=== PATIENT | female | born 1940 | race Caucasian/White ===

== ENCOUNTER 2017-09-08 06:18 | Day surgery (SDC) | payer MEDICARE ==
[~2017-09-08] VITALS: Ht 165.1 cm; Wt 54.4 kg
[~2017-09-08 06:18] MED LIST: ALPH0.15 EACH EYE; AMLO5TAB22 PO; IPRA17I INH; LEVO100T4 PO; METO25 PO; SYMB80AE INH; WARF2.5T40 PO; XALA0.00 EACH EYE; ZOCO40TA PO
[2017-09-08] MEDS ORDERED: IOHEXOL 350 MG/ML 50 ML BTL (for Cath Lab) OTHER ONE (06:19)
[2017-09-08] MEDS ORDERED: NS 1000P @30 MLS/HR (KVO) IV SCH (06:45)
[2017-09-08] MEDS ORDERED: MUPI2OIN TOPICAL (06:59)
[2017-09-08] MEDS ORDERED: NACCAP PO (06:59)
[2017-09-08] MEDS ORDERED: LEVO100T5 PO (06:59)
[2017-09-08] MEDS ORDERED: METO25TA3 PO (06:59)
[2017-09-08] MEDS ORDERED: WARF-23 PO (06:59)
[2017-09-08] MEDS ORDERED: IPRA17I INH (06:59)
[2017-09-08] MEDS ORDERED: SYMB160A INH (06:59)
[2017-09-08] MEDS ORDERED: AMLO5TAB2 PO (06:59)
[2017-09-08] MEDS ORDERED: PRED20 PO (06:59)
[2017-09-08] MEDS ORDERED: LEVO750T3 PO (06:59)
[2017-09-08] MEDS ORDERED: LATA0.002 EACH EYE (06:59)
[2017-09-08] MEDS ORDERED: SIMV20TA PO (06:59)
[2017-09-08 07:01] VITALS: BP 141/71; PULSE 73; RESP 18; TEMP 97.7; O2SAT 98
[2017-09-08 07:19] LABS: INTERNATIONAL NORMALIZED RATIO 1.1 RATIO; PROTHROMBIN TIME - PATIENT 10.8 SEC (9.8-11.6)
[2017-09-08] MEDS ORDERED: HEPARIN-NS/PF FLUSH BAG 2,000 ML IV FLUSH ONE (07:31)
[2017-09-08] MEDS ORDERED: NITROGLYCERIN INJ 5 ML ONE (07:34)
[2017-09-08] MEDS ORDERED: HEPARIN SODIUM - IV 10,000 UNITS/10 ML VIAL ONE (07:34)
[2017-09-08] MEDS ORDERED: MIDAZOLAM HCL 2 MG/2 ML VIAL ONE (08:20)
[2017-09-08] MEDS ORDERED: diphenhydrAMINE HCL 50 MG/ML VIAL ONE ×2 (08:32→10:57)
[2017-09-08] MEDS ORDERED: ONDANSETRON HCL 4 MG/2 ML VIAL ONE (08:32)
[2017-09-08] MEDS ORDERED: BACITRACIN OINT 0.9 GM PKT TOP ONE (09:30)
[2017-09-08] MEDS ORDERED: LIDOCAINE HCL 1% 50 ML VIAL INFIL PRN (09:30)
[2017-09-08] MEDS ORDERED: ATROPINE SULFATE 1 MG/ML VIAL IV PUSH PRN (09:30)
[2017-09-08] MEDS ORDERED: LORazepam 2 MG/ML VIAL IV PUSH PRN (09:30)
[2017-09-08] MEDS ORDERED: METOCLOPRAMIDE HCL 10 MG/2 ML VIAL IV PUSH PRN (09:30)
[2017-09-08] MEDS ORDERED: ONDANSETRON HCL 4 MG/2 ML VIAL IV PUSH PRN (09:30)
[2017-09-08] MEDS ORDERED: SODIUM CHLOR 0.9% 250 ML INJ 250 ML IV PRN (09:30)
--- NOTE | 2017-09-08 09:52 | CATHPROC ---
[employer] HIS Report Study Information Study Number Admission Scheduled Start Study Start [id number] Sep 08 2017 6:18AM 09/08/2017 Sep 08 2017 8:18AM [facility] Cardiac Catheterization Admit Source Facility Department Other [facility] - Auto Suspension And Steering Mechanic Physician and Clinical Staff Initial Sean Oropeza Wind Energy Technician Karen Snell,DA Other cathlab, cathlab Recorder Poppy Oseguera,PORCELAIN ENAMEL SPRAYER TECH2 Scrub Mari Alvarez ,RT(R) Procedures Performed Procedure Location (Site) Vessel Name Coronary Angiograms LCA Left Coronary Coronary Angiograms RCA Right Coronary Coronary Angiograms LÓPEZ-LAD Left Coronary Coronary Angiograms Gft, CIRC Mid CIRC Wire insertion Fem Art (right) Femoral Art Equipment Time Furniture Assembler Description Size Mfg Part Number Used/Scraped ARROW Berggi CATHETER, FR.7 BALLOON [id number] 09:02 FR 7 Used INC. WEDGE PRESSURE *[id number] TRANSDUCER, TRVisualShare [id number] 09:02 VICTOR CREWS * Used W/STOCKCOCK *[id number] *[id number] [id number] *[id number] 09:02 MEDLINE INDUSTRIES PACK, CCL CUSTOM * Used *[id number] 09:02 GEOLID PACER PEN, SKIN DUAL W/ RULER * Used *[id number] 09:11 MEDTRONIC JL 4.0 DXTERITY CATHETER FR 5 Used *[id number] 09:11 MEDTRONIC JR 4.0 DXTERITY CATHETER FR 5 Used *[id number] 09:02 TuneWiki MEDICAL WIRE, 3MMJ .035 180CM 180CM Used *[id number] 09:15 [employer] MEDICAL PACER SAFE SHEATH, FR7, 13CM FR 7 [id number] Used [id number] 09:02 NAMIC MANIFOLD, 2 PORT * Used *[id number] 09:02 NAMIC MANIFOLD, 4 PORT * Used *[id number] 09:02 NYCOMED OMNIPAQUE, 350 MG, 150ML 150ML [id number] Used [id number] 09:02 MORENO MEDICAL BLANKET,WARM AIR CCL * Used *[id number] 09:02 TERUMO MEDICAL SHEATH, FR5 TERUMO (10CM) FR 5 Used *[id number] 09:02 TERUMO MEDICAL SHEATH, FR7 TERUMO (10CM) FR 7 Used *[id number] Equipment Model, Serial, Lot Number and Expiration Data Description Model Number Serial Number Lot Number Expiration Date JL 4.0 DXTERITY CATHETER [id number] 03-14-2020 JR 4.0 DXTERITY CATHETER [id number] 04-03-2020 History: Current Medications Medication Dosage/Unit Route Frequency Last Date/Time Taken Synthroid PREDNISONE Coumadin History: Allergies Allergy Reaction iohexol NAUSEA AND VOMITING potassium iodide Rash sodium iodide Rash diatrizoate meglumine NAUSEA AND VOMITING iodine Rash povidone-iodine Rash gadoteridol NAUSEA AND VOMITING gadodiamide NAUSEA AND VOMITING meperidine CLAUSTROPHOBIA penicillin G Rash iodixanol NAUSEA AND VOMITING gadobenic acid NAUSEA AND VOMITING SHELLFISH Rash History: Risk Factors Family History of Hypertension Dyslipidemia Previous UT Previous Heart Failure Premature CAD Yes Yes No Yes No Prior Valve Prior PCI Prior CABG Prior CABGDate Surgery No No Yes 06/26/1991 Cerebrovascular Peripheral Artery Chronic Lung On Dialysis Diabetes Disease Disease Disease No No No Yes No History: CV Disease Selection Items Known CAD History: Stress Tests Stress or Imaging Studies Performed No History: Arrhythmias Selection Items Atrial fibrillation History: Other Disease Selection Items CAD Gerd HTN History: UT/CV Data Previous CABG Date 06/26/1991 History: Other Current Smoker No Labs Hgb (g/dl) Hct (%) RBC (MIL/MM3) WBC (l/cumm) Platelets (thousands) 11.60-17.00 35.00-51.00 4.00-5.90 4.00-11.00 150.00-450.00 12.6 38 4.4 6.4 372 Glucose (mg/dl) BUN (mg/dl) Creatinine (mg/dl) BUN:Creatinine (1:x) 74.00-106.00 7.00-18.00 0.50-1.30 10.00-20.00 160 16 0.7 22.9 Na (meq/l) K (meq/l) Cl (meq/l) CO2 (mmol/L) Ca (mg/dl) 136.00-145.00 3.50-5.10 98.00-107.00 21.00-32.00 8.50-10.10 141 3.9 102 18 8.6 PT (sec) INR (PTT:PT) 9.80-11.60 0.90-1.10 10.8 1.1 Medication Medication Total Dose (Bolus/Oral) Medication Total Dosage/Unit 1% XYLOCAINE 20 mL BENADRYL 50 mg FENTANYL 25 mcg VERSED 2 mg ZOFRAN 4 mg Medications (Bolus/Oral) Medication Time Given Dosage/Unit Administered By Reason BENADRYL 09/08/2017 8:37:35 AM 50 mg Mrache, Karen 50 mg BENADRYL given in lab by Karen Snell RN in Right Hand via Peripheral IV. Ordered by Sean Rosen. VERSED 09/08/2017 8:57:33 AM 1 mg Mrache, Karen 1 mg VERSED given in lab by Karen Snell RN in Right Hand via Peripheral IV. Ordered by Kike Rosen. FENTANYL 09/08/2017 8:58:20 AM 25 mcg Mrache, Karen 25 mcg FENTANYL given in lab by Karen Snell RN in Right Hand via Peripheral IV. Ordered by Sean Spivey. ZOFRAN 09/08/2017 8:59:02 AM 4 mg Mrache, Karen 4 mg ZOFRAN given in lab by Karen Snell RN in Right Hand via Central IV. Ordered by William Rosen. 1% XYLOCAINE 09/08/2017 9:00:19 AM 20 mL Sean Rosen 20 mL 1% XYLOCAINE given in lab by Sean Rosen in Right Groin via Subcutaneous. Ordered by Sean Rosen. VERSED 09/08/2017 9:05:20 AM 1 mg Mrache, Karen 1 mg VERSED given in lab by Karen Snell RN in Right Hand via Peripheral IV. Ordered by Kike Rosen. Medication (Drip) Medication Time Given Dosage/Unit Concentration/Unit Diluent (ml) Solution IV Solutions 09/08/2017 8:22:20 AM 0 mL (IV) 500 NaCl .9 IV Solutions given in lab by Karen Snell RN in Right Hand via Peripheral IV. Pump/Drip Flow = 2 0 ml/hr using NaCl .9. Ordered by Sean Rosen. Initial Case Assessment Cardiovascular HR NIBP 86 136/74 Edema Present Skin color Skin None Normal Warm Dry Circulatory - Right Pulses Dorsalis Pedis Femoral 2 3 Scale (0,1,2,3,4,d) Circulatory - Left Pulses Dorsalis Pedis Femoral 2 3 Scale (0,1,2,3,4,d) Neurological State Oriented to time-place- Alert Moves all extremities person Respiration - General Respiration Rate SpO2 (%) (B/min) 17 98 Chronological Log Time Study Chronological Log 8:17:58 Patient arrived via Bed. 8:17:59 Patient Name, D.O.B, / Armband Verified By R.N. 8:18:00 Consent signed by the physician and the patient and verified by the Auto Suspension And Steering Mechanic staff. 8:22:12 Patient has been NPO for More than 6Hrs. 8:22:13 NO Skin Breakdown- 8:22:14 Patient Warmer Placed on the Table. 8:22:16 Megan Prominences Protected 8:22:19 A # 20 IV was noted in the Hand (right). Grade = 0 IV Solutions given in lab by Karen Snell, RN in Right Hand via Peripheral IV. Pump/Drip Flow = 20 ml/hr using 8:22:20 NaCl .9. Ordered by Sean Rosen. 8:22:21 History and physical on the chart or being dictated. Vitals capture started with the following parameters, Patient=Adult, Interval=5 min, Initial Jwlmdgaz=912 mmHg, 8:22:30 Deflation Rate=5 mmHg, Cuff placed on Right Arm 8:23:07 HR=86 bpm, FAAI=870/74 mmhg, SpO2=98.0 %, Resp=17 B/min, Pain=0, Danna=10, Hughes=2 Assessment: Initial Case, HR=86 BPM, ELBG=701/74 mmhg, Edema=None, Color=Normal, Skin = Warm, Dr y Right Pulses: Samuel Ped=2, Femoral=3 8:24:53 Left Pulses: Samuel Ped=2, Femoral=3 Neurological: State=Alert, Ox3, EVANGELISTA Respiration: Resp=17 B/min, SpO2=98 % 8:25:41 Reference ECG taken 8:28:04 HR=73 bpm, KNLQ=109/74 mmhg, SpO2=97.0 %, Resp=18 B/min, Pain=0, Danna=10, Hughes=2 8:30:41 Bilateral groins prepped with 2% chlorhexidine, and draped after a 3 minute waiting time. 8:33:09 HR=74 bpm, THKV=945/70 mmhg, SpO2=89.0 %, Resp=17 B/min, Pain=0, Danna=10, Hughes=2 8:33:28 Pressure channel 1 zeroed. 8:37:35 50 mg BENADRYL given in lab by Karen Snell, DA in Right Hand via Peripheral IV. Ordered by Sean Rosen. 8:38:10 HR=75 bpm, LYLR=629/70 mmhg, SpO2=98.0 %, Resp=19 B/min, Pain=0, Danna=10, Hughes=2 8:43:05 HR=75 bpm, VJUZ=015/79 mmhg, SpO2=99.0 %, Resp=16 B/min, Pain=0, Danna=10, Hughes=2 8:48:51 HR=80 bpm, DCEX=229/81 mmhg, SpO2=98.0 %, Resp=12 B/min, Pain=0, Danna=10, Hughes=2 8:53:11 HR=75 bpm, KMWS=388/72 mmhg, SpO2=98.0 %, Resp=17 B/min, Pain=0, Danna=10, Hughes=2 8:57:33 1 mg VERSED given in lab by Karen Snell, DA in Right Hand via Peripheral IV. Ordered by Sean Rosen. 8:58:10 HR=76 bpm, HBJV=474/74 mmhg, SpO2=98.0 %, Resp=19 B/min, Pain=0, Danna=10, Hughes=2 8:58:20 25 mcg FENTANYL given in lab by Karen Snell, DA in Right Hand via Peripheral IV. Ordere d by Sean Rosen. 8:59:02 4 mg ZOFRAN given in lab by Karen Snell, DA in Right Hand via Central IV. Ordered by Sean Wynne. Time Out. Correct patient, correct procedure, correct physician, power injector not loaded with contrast with surgical 8:59:34 team present. Time Out Concurred by MD and individual staff in procedure. 9:00:18 Case Start 9:00:19 20 mL 1% XYLOCAINE given in lab by Sean Rosen in Right Groin via Subcutaneous. Ordered b Sean Sosa. 9:02:56 Access site was Right Femoral Vein. 9:03:08 A SHEATH, FR7 TERUMO (10CM) FR 7 was advanced into the Fem Vein (right) using the Modified S savageer technique. 9:03:12 HR=72 bpm, IRUW=927/72 mmhg, SpO2=97.0 %, Resp=18 B/min, Pain=0, Danna=10, Hughes=2 9:04:35 Access site was Right Femoral Artery. 9:04:43 A SHEATH, FR5 TERUMO (10CM) FR 5 was advanced into the Fem Art (right) using the Modified Se davis technique. 9:05:20 1 mg VERSED given in lab by Karen Snell RN in Right Hand via Peripheral IV. Ordered by Sean Rosen. 9:05:33 A CATHETER, FR.7 BALLOON WEDGE PRESSURE FR 7 was inserted via Fem Vein (right) Recorded Pressure: RA, HR=71, Condition=Condition 1 9:07:11 (Right Atrium) RA 5/5/2 Recorded Pressure: RV, HR=68, Condition=Condition 1 9:07:28 (Right Ventricle) RV 36/0/4 Recorded Pressure: MPA, HR=72, Condition=Condition 1 9:07:57 (Main Pulmonary Artery) MPA 32/20 9:08:11 HR=71 bpm, KZJJ=499/65 mmhg, SpO2=98.0 %, Resp=17 B/min, Pain=0, Danna=10, Hughes=2 Recorded Pressure: PCW, HR=72, Condition=Condition 1 9:08:26 (Pulmonary Capillary Wedge) PCW 1316/11 9:09:10 [place] Brenda Catheter Removed A JL 4.0 DXTERITY CATHETER FR 5 was advanced over a wire. OMNIPAQUE, 350 MG, 150ML 150ML was use d for :09:11 injections. 9:10:59 Saturation: Site=Ao (Aorta) , O2=96.2 %, Hgb=12.6 gm/dl, Condition=Condition 1. Used in calc ulation. 9:11:15 Saturation: Site=PA (Pulmonary Artery) , O2=78.8 %, Hgb=12.6 gm/dl, Condition=Condition 1. U sed in calculation. Recorded Pressure: Ao, HR=71, Condition=Condition 1 9:12:12 (Aorta) Ao 135/59/88 9:12:31 The LCA was injected and visualized at various angles. OMNIPAQUE, 350 MG, 150ML 150ML use d. 9:13:05 HR=68 bpm, LTIC=214/66 mmhg, SpO2=98.0 %, Resp=18 B/min, Pain=0, Danna=10, Hughes=2 After removing the current catheter a JR 4.0 DXTERITY CATHETER FR 5 was advanced over a WIRE, 3MMJ .035 180CM 9:15:34 180CM. 9:17:36 The RCA was injected and visualized at various angles. OMNIPAQUE, 350 MG, 150ML 150ML use d. 9:18:09 HR=71 bpm, XWAT=312/70 mmhg, SpO2=99.0 %, Resp=17 B/min, Pain=0, Danna=10, Hughes=2 9:18:18 The Gft, CIRC Mid was injected and visualized at various angles. OMNIPAQUE, 350 MG, 150ML 150ML used. 9:20:06 The LÓPEZ-LAD was injected and visualized at various angles. OMNIPAQUE, 350 MG, 150ML 150ML used. 9:20:43 A WIRE, 3MMJ .035 180CM 180CM was inserted via Fem Art (right). 9:20:51 Catheter was removed 9:20:55 Case End 9:21:15 Catheter(s) removed without difficulty 9:23:08 HR=72 bpm, VKGG=571/76 mmhg, SpO2=99.0 %, Resp=14 B/min, Pain=0, Danna=10, Hughes=2 9:25:08 Arterial Sheath removed; pressure applied to access site. 9:28:13 HR=69 bpm, OIRV=430/67 mmhg, DcG7=345.0 %, Resp=16 B/min, Pain=0, Danna=10, Hughes=2 9:33:14 HR=70 bpm, OLTA=860/69 mmhg, SpO2=99.0 %, Resp=17 B/min, Pain=0, Danna=10, Hughes=2 9:35:27 Venous Sheath removed; pressure applied to access site. 9:36:42 No case complications noted. 9:36:43 Cine recording checked. 9:36:48 Holding Area notified. 9:36:53 Bedside Report will be given. 9:36:59 A Left and Right Heart Cath was performed. 9:38:15 HR=67 bpm, RICW=948/60 mmhg, SpO2=99.0 %, Resp=17 B/min 9:43:10 HR=69 bpm, AAZW=191/76 mmhg, SpO2=98.0 %, Resp=19 B/min 9:48:25 Vitals capture stopped. 9:51:20 [facility] - Contrast Media Used In Study Contrast Total Opened (mL) Total Used (mL) Total Wasted (mL) Omnipaque 50 50 0 End Study - Maximum Contrast Load Max Contrast Load (mL) 388.6 End Study - Radiation Exposure Fluoro Time (minutes) 2.9 End Study - Sheaths Sheaths Pulled By Sheath Hold Time (min) Mari Alvarez 20 End Study - Patient Disposition Complications Transferred To Telemetry Bed
--- NOTE | 2017-09-08 10:05 | MA ---
cc: Sean Rosen MD 09/08/2017 DATE OF PROCEDURE: 09/08/2017 INDICATIONS: Severe aortic stenosis. PROCEDURES PERFORMED: 1. Fluoroscopy with interpretation. 2. Coronary angiography. 3. Right catheterization. 4. Coronary bypass graft angiography. METHOD: Risks, benefits and alternatives discussed with the patient. The patient understood and consented to the procedure. The patient was brought into catheterization lab, placed on the catheterization table. The right groin was prepped and draped in sterile fashion. The right groin was anesthetized with 2% lidocaine. Right common femoral artery was cannulated and a 5-Iraqi 11 cm sheath was placed in the artery. A size 7-Iraqi long Slender sheath placed in the vein. RIGHT HEART CATHETERIZATION: A 7-Iraqi [place]renda pulmonary arterial catheter was advanced through the right femoral venous sheath up to the level of the right atrium under fluoroscopic guidance. Hemodynamics were performed in all chambers while advancing to the pulmonary capillary wedge position. Hemodynamics were as follows: 1. Right atrial pressure measured at 5 mmHg. 2. Right ventricular pressure was 36/4 mmHg. 3. Pulmonary arterial pressure measured 32/10 mmHg. 4. Pulmonary capillary wedge pressure measured at 11 mmHg. Cardiac output 6.4 liters per minute. Cardiac index 3.2 liters/minute/m2. CORONARY ANGIOGRAPHY: 1. Left main has 30-40% proximal stenosis. 2. Left anterior descending coronary artery has 30% proximal with mild luminal irregularities in the mid to distal segment. 3. Left circumflex is a dominant vessel giving rise to a left-sided posterior descending branch. Left circumflex gives rise to the first obtuse marginal branch with a vein graft and competitive flow visualized. The remainder of the circumflex has mild irregularities. There is a 30% stenosis proximally in the circumflex. 4. Right coronary artery is nondominant with a 30% proximal stenosis. CORONARY BYPASS GRAFT ANGIOGRAPHY: 1. Left internal mammary to left anterior descending is atretic. 2. Saphenous vein graft to the first obtuse marginal branch is widely patent with competitive flow. CONCLUSIONS: 1. Severe aortic stenosis 2. Normal left and right-sided filling pressures with normal pulmonary pressures and normal cardiac output and index. 3. Mild to moderate coronary artery disease with left dominant system. 4. One of two coronary bypass grafts are patent. The left internal mammary to the left anterior descending is atretic. PLAN: The patient has severe aortic stenosis. We will obtain surgical consultation and consideration for transcatheter aortic valve replacement versus surgical aortic valve replacement. The patient has an atretic left internal mammary likely due to competitive flow secondary to nonobstructive left main and left anterior descending coronary artery disease. No need for intervention. MD TG Heck/SB , 09:34 AM , 10:03 AM
--- NOTE | 2017-09-08 10:41 | PD.FRAIL ---
Date: Sep 08, 2017 Height: 165.1 cm Weight: 54.4 kg BMI: 20.0 Assessment Performed: Outpatient Albumin 09/08/17 08:06: Albumin 3.3 Pass/Fail: Fail [place] Activities Daily Living [place] ADL Score: Bathing(bathes self/help in single area): [place] (1), Dressing(gets/puts clothes on self): [place] (1), Toileting(goes without help): [place] ( 1), [facility] [place] (1), Continence( complete self-control): [place] (1), Feeding(self, prep by another allowed) : [place] (1), Total: 6 Pass/Fail: Pass Bit Tapper Strength Grasp 1: 18 Grasp 2: 16 Grasp 3: 16 Average: 17 Pass/Fail: Pass 15-Foot Walk 15-Foot Walk (seconds): 8 Pass/Fail: Fail Total Frailty Total Frailty (out of 4): 2 Frailty Index Score Reference Bit Tapper Strength: BMI: <=23 Cutoff for back tacker strength(Kg): <=17 BMI: 23.1-26 Cutoff for back tacker strength(Kg): <=17.3 BMI: 26.1-29 Cutoff for back tacker strength(Kg): <=18 BMI: >29 Cutoff for back tacker strength(Kg): <=21 15-Foot Walk: Height: <=159 cm 15-Foot Walk Cutoff Time: >=7 seconds Height: >159 cm 15-Foot Walk Cutoff Time: >=6 seconds Charanjit Torre RN Sep 08, 2017 10:41
--- NOTE | 2017-09-08 11:10 | EKG ---
Date Performed: 09/08/2017 Time Performed: 07:07:30 PTAGE: 76 years EKG: Sinus rhythm Left axis deviation RBBB with left anterior fascicular block Abnormal ECG NO PREVIOUS TRACING DOCTOR: Konstantin Pérez Interpretating Date/Time 09/08/2017 11:07:35
[2017-09-08] MEDS ORDERED: diphenhydrAMINE HCL 50 MG/ML VIAL IV PUSH ONE (11:15)
--- NOTE | 2017-09-08 12:05 | RADRPT ---
EXAM DATE/TIME: 09/08/2017 10:53 [facility] COMPARISON: No previous studies available for comparison. INDICATIONS : Tavr evaluation MEDICAL HISTORY : None. SURGICAL HISTORY : CABG. ENCOUNTER: Initial ACUITY: 1 day PAIN SCORE: 0/10 LOCATION: Bilateral chest FINDINGS: There is some increased basilar dependent density was meds and atelectasis and scarring. Postop CABG by history. No effusion or pneumothorax. Calcified hilar lymph nodes and scattered granulomata in the lungs. CONCLUSION: 1. Basilar dependent density in the lungs most characteristic of atelectasis or scarring. Remote gran ulomatous disease. Anmol Paul MD on September 08, 2017 at 12:02 Board Certified Radiologist. This report was verified electronically.
[2017-09-08] MEDS ORDERED: IOHEXOL 350 MG/ML 10 ML VIAL (for RAD DIAG) IVCONTRAST ONE (13:36)
[2017-09-08 14:00] LABS: BILIRUBIN, URINE NEG (NEG); BLOOD, URINE TRACE (NEG); GLUCOSE,URINE NEG (NEG); KETONE, URINE 10 mg/dL (NEG); MUCUS URINE FEW /lpf (OCC); NITRITE,URINE NEG (NEG); PH, URINE 5.5 (5.0-8.5); SQUAMOUS EPITHELIAL CELL URINE <1 /hpf (0-5); URINE COLOR YELLOW (YELLW/STRAW); URINE LEUKOCYTE ESTERASE NEG (NEG)
--- NOTE | 2017-09-08 17:46 | PD.CAR.PN ---
CVT Progress Note Subjective/Hospital Course: pt seen and evaluated for Dr Malin full consult to follow sts data discussed with pt RISK SCORES About the STS Risk Calculator Procedure: AV Replacement Risk of Mortality: 4.005% Morbidity or Mortality: 21.165% Long Length of Stay: 10.046% Short Length of Stay: 23.966% Permanent Stroke: 2.031% Prolonged Ventilation: 16.783% DSW Infection: 0.228% Renal Failure: 3.967% Reoperation: 8.268% Objective: Vital Signs Date Time Temp Pulse Resp B/P (MAP) Pulse Ox O2 Delivery O2 Flow Rate FiO2 09/08/17 09:59 99 Room Air 09/08/17 07:01 97.7 73 18 141/71 (94) 98 Labs: Laboratory Tests Test 09/08/17 07:00 09/08/17 08:06 09/08/17 13:00 09/08/17 13:20 Prothrombin Time 10.8 SEC (9.8-11.6) Prothromb Time International Ratio 1.1 RATIO Albumin 3.3 GM/DL (3.4-5.0) Urine Color YELLOW (YELLW/STRAW) Urine Turbidity CLEAR (CLEAR) Urine pH 5.5 (5.0-8.5) Urine Specific [place] GREATER THAN 1.050 Urine Protein TRACE mg/dL (NEG-TRACE) Urine Glucose (UA) NEG mg/dL (NEG) Urine Ketones 10 mg/dL (NEG) Urine Occult Blood TRACE (NEG) Urine Nitrite NEG (NEG) Urine Bilirubin NEG (NEG) Urine Urobilinogen LESS THAN 2.0 MG/DL (LESS Urine Leukocyte Esterase NEG (NEG) Urine RBC LESS THAN 1 /hpf (0-3) Urine WBC 1 /hpf (0-5) Urine Squamous Epithelial Cells <1 /hpf (0-5) Urine Mucus FEW /lpf (OCC) Microscopic Urinalysis Comment CULT NOT INDICATED Nasal Screen MRSA (PCR) MRSA NOT DETECTED (NOT Laura Crow Sep 08, 2017 17:46
--- NOTE | 2017-09-08 18:10 | RADRPT ---
EXAM DATE/TIME: 09/08/2017 13:28 [facility] COMPARISON: No previous studies available for comparison. INDICATIONS : Evaluate for trans aortic valve replacement. IV CONTRAST: 85 cc Omnipaque 350 (iohexol) IV RADIATION DOSE: 30.31 CTDIvol (mGy) MEDICAL HISTORY : Cardiovascular disease. Hypertension. Congestive heart failure. SURGICAL HISTORY : Hysterectomy. CABG ENCOUNTER: Initial ACUITY: 1 day PAIN SCALE: 0/10 LOCATION: cranial Patient was premedicated for underlying contrast media allergy. TECHNIQUE: Volumetric scanning was performed using a multi-row detector CT scanner. The data was post processed with a variety of visualization algorithms including full volume maximum intensity projection, multi -planar sliding thin slab reformation, curved planar reformation, and surface rendering techniques. Using automated exposure control and adjustment of the mA and/or kV according to patient size, radiat ion dose was kept as low as reasonably achievable to obtain optimal diagnostic quality images. DIC OM format image data is available electronically for review and comparison. FINDINGS: CARDIAC: The coronary system is left dominant. There is diffuse atherosclerotic plaquing involving the LAD. Th ere is a bypass graft which originates from the tubular portion of the ascending aorta and anastomosi s with the circumflex. The graft is patent. The right coronary is diminutive in size. The coronaries were not assessed in detail. AORTIC ROOT/VALVE: There is a tricuspid aortic valve. There is diffuse atherosclerotic calcification of the valve leafle ts. There is mild atherosclerotic calcification of the aorta again US. The aortic root just above the level the coronaries measures 3.4 cm in maximum dimension it should be noted, the patient's bypass g raft arises from the tubular portion of the ascending aorta just below the level of the arch. The tub ular portion of the ascending aorta measures approximately 3.5 cm in maximum dimension. THORACIC AORTA: The aortic arch is at the upper limits of normal in size measuring approximately 3 cm in maximum dime nsion. There is no significant atherosclerotic plaquing. There is normal branching of the great vesse ls from the arch. The origins of the great vessels are widely patent. The descending thoracic aorta i s normal in caliber throughout its course measuring approximately 2.5 cm. There is no significant ath erosclerotic plaquing. ABDOMINAL AORTA: The celiac and SMA are widely patent. There are single renal arteries bilaterally. There is at least mild ostial renal stenosis on the right. The infrarenal aorta is moderately calcified but normal in c aliber measuring approximately 1.7 cm. PELVIS: The common iliac, internal iliac and external iliac circulation demonstrates only mild atheroscleroti c plaquing and is widely patent throughout its course. Of note, the right common femoral is fairly he avily diseased with a short segment oil-uenf-lxcvwuhg dissection. THORAX: The heart is normal in size. There is fairly extensive, old calcified mediastinal and bilateral hilar adenopathy. This would suggest previous granulomatous disease. The pulmonary parenchyma demonstrates COPD changes with areas of fibrosis and scarring within both lungs. No suspicious lesions are identi fied. ABDOMEN: The solid organs of the abdomen are grossly intact by arterial phase imaging. There is no retroperito jason adenopathy. The visualized loops of small and large bowel are unremarkable. PELVIS: There is no free fluid within the pelvis. No iliac or inguinal adenopathy is seen. There are degenera tive changes within the lumbar spine. CONCLUSION: 1. There is extensive calcification of aortic valvular leaflets. The aortic root just above the level the coronaries measures 3.4 cm. 2. It should be noted, the patient has a bypass graft which arises from the tubular portion of the as cending aorta somewhat above the level of the aortic root. It is patent. 3. Extensive calcified hilar and mediastinal adenopathy suggesting old granulomatous disease. 4. Atelectasis in the right middle lobe with areas of fibrosis and scarring throughout both lungs. 5. Mild ostial renal stenosis on the right. 6. Short segment klv-aaod-ktatlqim dissection of the right common femoral artery. Mohan Stapleton MD on September 08, 2017 at 17:59 Board Certified Radiologist. This report was verified electronically.
--- NOTE | 2017-09-08 18:31 | MB ---
cc: Laura Crow Jacqueline R ARNP DATE OF CONSULT: 09/08/2017 DATE OF : 1940 HISTORY OF PRESENT ILLNESS: A 76-year-old female patient of Dr. Rosen with complaint of some shortness of breath. She has had ongoing. She had an echocardiogram done by Dr. Rosen which showed severe aortic valve stenosis, which was previously moderate in 2014, aortic valve area decreased from 1.0-0.67. She underwent cardiac catheterization today for workup which included nonobstructive coronary artery disease with ejection fraction of 60 percent. We were consulted to evaluate for aortic valve replacement versus transcatheter aortic valve replacement. PAST MEDICAL HISTORY: The patient has extensive medical history including a nonobstructive coronary disease, atrial fibrillation controlled, hyperlipidemia, hypertension, severe aortic stenosis, anxiety, chronic kidney disease stage III, degenerative disk disease, gastroesophageal reflux disease, hyperlipidemia, hypertension, hypothyroidism. Apparently she has had an HI in the past. Pulmonary emphysema, pulmonary fibrosis. 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 PAST SURGICAL HISTORY: Include appendectomy, history of coronary artery disease, coronary artery bypass grafting x2 in 1991, right eye cataract surgery, cholecystectomy, colonoscopy, EGD, eye surgery, hysterectomy, open lung biopsy of the right lung with a mini thoracotomy, thyroidectomy, tonsillectomy. MEDICATION LIST: Atrovent. Coumadin. Simvastatin. Metoprolol. Amlodipine. Symbicort. Prednisone. Levothyroxine. ALLERGIES: INCLUDE SHELLFISH, IODINE, DEMEROL, PENICILLIN, POTASSIUM IODIDE, IVP DYE, GADOBENIC ACID, GADODIAMIDE. FAMILY HISTORY: The patient is and lives with her son. SOCIAL HISTORY: No tobacco or alcohol. REVIEW OF SYSTEMS: GENERAL: No night sweats, fever, heat and cold intolerance. SKIN: No psoriasis, itching or hives. HEENT: No blurred vision, hearing loss. RESPIRATORY: Positive for shortness of breath. CARDIOVASCULAR: No chest pain, no paresthesias or nocturnal dyspnea, no orthopnea. GASTROINTESTINAL: No diarrhea or vomiting. GENITOURINARY: No burning, frequency, urgency. CENTRAL NERVOUS SYSTEM: No history of TIA, CVA or seizure disorder. ENDOCRINOLOGY: Positive for hypothyroidism. PHYSICAL EXAMINATION: VITAL SIGNS: Blood pressure 140/70, heart rate is 73, temperature T-max 97.7, O2 saturation 99 on room air. GENERAL: The patient is awake, alert, in no acute distress. HEENT: Head is normocephalic, atraumatic. Pupils equal and reactive. Oral mucosa pink, moist. NECK: Supple. No JVD. HEART: Sounds S1, S2, slightly irregular. There is a grade 3/6 systolic murmur at the right upper sternal border. LUNGS: Clear to auscultation. No wheezes, rales or rhonchi. ABDOMEN: Soft, nontender. No masses or organomegaly. EXTREMITIES: No cyanosis, clubbing, or edema. LABORATORY DATA: Shows an albumin level of 3.3. INR 1.1. BUN of 16, creatinine 0.78, sodium 141, potassium 3.9. Hemoglobin 12, hematocrit of 38. White cell 6, platelet count of 372. ASSESSMENT AND PLAN: This is a 76-year-old female with severe aortic stenosis. She has had coronary artery bypass grafting with a median sternotomy back in 1991. At this time, her risk score is 4.0, the frailty score is a 2/4 at this time since she has multiple risk factors including coronary artery disease, atrial fibrillation, on anticoagulation. Recommendations would be for transcatheter aortic valve replacement. Further planning per Dr. Malin and will be seen also by our partner, Dr. Morales. Laura Crow [facility] MD SIMON Mcclure/GREG , 05:54 PM , 06:28 PM
--- NOTE | 2017-09-12 08:35 | RSPPFT ---
DATE OF PROCEDURE: 09/08/17 COMMENTS: VOLUMES DYNAMIC: FVC and FEV1 mildly reduced. FLOWS: FEV1% normal; FEF 25-75 mildly reduced. IMPRESSION: Mild obstructive ventilatory defect based on simple spirometry . Full lung volumes might be helpful to exclude a restrictive defect.
== END 2017-09-08 16:16 | disposition home or self-care (01) ==
LOC: HDIC 06:18 → HDOC 06:18
PROVIDERS: ATTEND Internal Medicine
DX: I35.0 Nonrheumatic aortic (valve) stenosis (principal); I25.10 Atherosclerotic heart disease of native coronary artery without angina pectoris; R06.02 Shortness of breath; I48.91 Unspecified atrial fibrillation; I13.0 Hypertensive heart and chronic kidney disease with heart failure and stage 1 through stage 4 chronic kidney disease, or unspecified chronic kidney disease; I50.9 Heart failure, unspecified; N18.3 Chronic kidney disease, stage 3 (moderate); E78.5 Hyperlipidemia, unspecified; K21.9 Gastro-esophageal reflux disease without esophagitis; J84.10 Pulmonary fibrosis, unspecified; J43.9 Emphysema, unspecified; I25.2 Old myocardial infarction; F41.9 Anxiety disorder, unspecified; Z95.1 Presence of aortocoronary bypass graft
CPT/HCPCS: 71045; 74174; 76937; 81001; 82040; 82810; 85610; 86850; 86900; 86901; 87641; 93005; 93456; 94010; 99152; 99153; C1769; C1893; J1644; J2250; J2405; J3010; J7030; Q9967; J1200

== ENCOUNTER 2017-10-04 05:49 | Day surgery (SDC) | payer MEDICARE ==
[~2017-10-04] VITALS: Ht 165.1 cm; Wt 52.2 kg
[~2017-10-04 05:49] MED LIST changes: -ALPH0.15 EACH EYE; +AMLO5TAB2 PO; -AMLO5TAB22 PO; +LATA0.002 EACH EYE; -LEVO100T4 PO; +LEVO100T5 PO; +LEVO750T3 PO; -METO25 PO; +METO25TA3 PO; +MUPI2OIN TOPICAL; +NACCAP PO; +PRED20 PO; +SIMV20TA PO; +SYMB160A INH; -SYMB80AE INH; +WARF-23 PO; -WARF2.5T40 PO; -XALA0.00 EACH EYE; -ZOCO40TA PO
[2017-10-04] MEDS ORDERED: MUPIROCIN 2% OINT 1 APPLIC/GM SYR NASAL SCH (06:30)
[2017-10-04] MEDS ORDERED: CEFAZOLIN INJ 2,000 MG in SODIUM CHLORIDE 0.9% INJ 100 ML IV SCH (06:30)
[2017-10-04] MEDS ORDERED: POVIDONE IODINE 5% (ANTISEPSIS KIT) 4 APPLICATIONS EACH NARE SCH (06:30)
[2017-10-04] MEDS ORDERED: VANCOMYCIN 1 GM/200 ML INJ 200 ML IV SCH (06:30)
[2017-10-04] MEDS ORDERED: CHLORHEXIDINE GLUCONATE 2 % 1 PACK (2 CLOTHS) TOPICAL SCH (06:30)
[2017-10-04] MEDS ORDERED: LORazepam 1 MG TAB SL SCH (06:30)
[2017-10-04] MEDS ORDERED: NS 1000 ML IV SCH (06:30)
[2017-10-04 06:35] VITALS: BP 157/74; PULSE 77; RESP 18; TEMP 97.8; O2SAT 99
[2017-10-04 06:47] LABS: AUTOMATED NEUTROPHIL # 3.4 TH/MM3 (1.8-7.7); BASOPHIL # 0.1 TH/MM3 (0-0.2); BASOPHIL % 1.2 % (0.0-2.0); EOSINOPHIL # 0.3 TH/MM3 (0-0.4); HEMATOCRIT 39.6 % (35.0-46.0); LYMPH % 30.1 % (9.0-44.0); MEAN CELL VOLUME 83.7 FL (80.0-100.0); MEAN CORPUSCULAR HEMOGLOBIN 27.4 PG (27.0-34.0); MEAN CORPUSCULAR HGB CONC 32.8 % (32.0-36.0); MEAN PLATELET VOLUME 9.9 FL (7.0-11.0); MONO % 12.5 % (0.0-8.0); MONOCYTE # 0.8 TH/MM3 (0-0.9); NEUT % 51.2 % (16.0-70.0); PLATELET COUNT 247 TH/MM3 (150-450); RED BLOOD COUNT 4.73 MIL/MM3 (4.00-5.30); RED CELL DISTRIBUTION WIDTH 15.2 % (11.6-17.2); WHITE BLOOD COUNT 6.7 TH/MM3 (4.0-11.0)
[2017-10-04 06:51] LABS: INTERNATIONAL NORMALIZED RATIO 2.7 RATIO; PROTHROMBIN TIME - PATIENT 27.4 SEC (9.8-11.6)
[2017-10-04] MEDS ORDERED: SODIUM CHLORID 0.9% 500 ML IV PRN (07:00)
[2017-10-04] MEDS ORDERED: LACTATED RINGER'S 1000 ML IV PRN (07:00)
[2017-10-04] MEDS ORDERED: POVIDONE IODINE 5% (ANTISEPSIS KIT) 4 APPLICATIONS EACH NARE PRN (07:00)
[2017-10-04] MEDS ORDERED: CHLORHEXIDINE GLUCONATE 2 % 1 PACK (2 CLOTHS) TOPICAL PRN (07:00)
[2017-10-04] MEDS ORDERED: MIDAZOLAM HCL 2 MG/2 ML VIAL ONE (07:04)
[2017-10-04 07:19] LABS: BICARBONATE 21.5 MEQ/L (21.0-32.0); CALCIUM 9.1 MG/DL (8.5-10.1); CREATININE 0.98 MG/DL (0.50-1.00)
[2017-10-04] MEDS ORDERED: HEPARIN-NS/PF FLUSH BAG 1,000 ML IV FLUSH ONE (07:34)
[2017-10-04] MEDS ORDERED: LIDOCAINE HCL 1% PF 30 ML VIAL ONE (07:34)
[2017-10-04] MEDS ORDERED: BACITRACIN OINT 0.9 GM PKT TOP ONE (08:30)
[2017-10-04] MEDS ORDERED: LORazepam 2 MG/ML VIAL IV PUSH PRN (08:30)
[2017-10-04] MEDS ORDERED: LIDOCAINE HCL 1% 50 ML VIAL INFIL PRN (08:30)
[2017-10-04] MEDS ORDERED: ONDANSETRON HCL 4 MG/2 ML VIAL IV PUSH PRN (08:30)
[2017-10-04] MEDS ORDERED: SODIUM CHLOR 0.9% 250 ML INJ 250 ML IV PRN (08:30)
[2017-10-04] MEDS ORDERED: ATROPINE SULFATE 1 MG/ML VIAL IV PUSH PRN (08:30)
--- NOTE | 2017-10-04 08:36 | CATHPROC ---
Patient Name: BARBARA LORENZO Study #: [id number] Initial MD: Edwin Mason Date of : 1940 Study Date: 10/04/2017 Cardiac Catheterization Report 10/04/2017 8:35:40 AM Financial #: [id number] 1 of 8 Patient Name: BARBARA LORENZO Study #: [id number] Initial MD: Edwin Mason Date of : 1940 Study Date: 10/04/2017 Entire Case Report Patient Information Patient Name BARBARA LORENZO Date of 1940 Age 76 years Financial # [id number] Gender F AlternateID Lab Number 2 Room Number DC05 Height (in) 65.0 Height (cm) 165.1 BSA 1.56 Weight (lbs) 114.8 Weight (kg) 52.2 Patient Address/Phone Number Home Address [facility] Home Phone Number [address] [address] Study Information Study Number Admission Scheduled Start Study Start [id number] Oct 04 2017 5:49AM 10/04/2017 Oct 04 2017 6:51AM [place] [facility] Study Admit Source Facility Department Other [facility] - Creative Art Director Physician and Clinical Staff Initial Edwin [employer] Faculty Member Dain Issa,RT(R) Other Anesthesia, INDUSTRIAL ACCOUNTANT Recorder Karen Snell RN Scrub Maira Wick,RT(R) TECH2 Procedures Performed Procedure Ablation Procedure 10/04/2017 8:35:40 AM Financial #: [id number] 2 of 8 Patient Name: BARBARA LORENZO Study #: [id number] Initial MD: Edwin Mason Date of : 1940 Study Date: 10/04/2017 Equipment Time Pig Handler Description Size Mfg Part Number Used/Scraped [id number] 06:53 [employer]ES PACK, CCL CUSTOM * Used *[id number] 06:53 [employer] PACER [place]ER[place]OD, LIMB * 2530 *[id number] Used [id number] 07:48 NAMIC TUBING, HIGH PRESSURE 48" 48" Used *[id number] 06:53 [employer],WARM AIR CCL * Used *[id number] 06:54 [employer] MED[employer] CATHETER, JSN, QUAD FR 5 Used *[id number] 06:54 [employer] MED[employer] CATHETER, JSN, QUAD FR 5 Used *[id number] 06:54 [employer] MED[employer] CATHETER, JSN, QUAD FR 5 Used *[id number] 06:54 [employer] MEDICAL CATHETER, JSN, QUAD FR 5 Used *[id number] 06:54 [employer] MED[employer] SHEATH, EPS, FR5 FAST CATH FR 5 Used *[id number] 686087 06:54 [employer] MED[employer] SHEATH, EPS, FR5 FAST CATH FR 5 Used *[id number] [id number] 06:54 [employer] MED[employer] SHEATH, EPS, FR5 FAST CATH FR 5 Used *[id number] 06:54 [employer] MED[employer] SHEATH, EPS, FR6 FAST CATH FR 6 Used *[id number] Insurance Information Insurance Payor [facility] Health Insurance Third Libertarian Third Libertarian Number [facility] HMO FHCMCRHMO 10/04/2017 8:35:40 AM Financial #: [id number] Patient Name: BARBARA LORENZO Study #: [id number] Initial MD: Edwin Mason Date of : 1940 Study Date: 10/04/2017 History: Allergies Allergy Reaction iohexol NAUSEA AND VOMITING potassium iodide Rash sodium iodide Rash diatrizoate meglumine NAUSEA AND VOMITING iodine Rash povidone-iodine Rash gadoteridol NAUSEA AND VOMITING gadodiamide NAUSEA AND VOMITING meperidine CLAUSTROPHOBIA penicillin G Rash iodixanol NAUSEA AND VOMITING gadobenic acid NAUSEA AND VOMITING SHELLFISH Rash History: Risk Factors Hypertension Dyslipidemia Previous RI Previous Heart Failure Yes Yes Yes Yes Prior CABG Yes Chronic Lung Disease Yes Labs Hgb (g/dl) Hct (%) RBC (MIL/MM3) WBC (l/cumm) Platelets (thousands) 11.60-17.00 35.00-51.00 4.00-5.90 4.00-11.00 150.00-450.00 13.0 39 4.7 6.7 247 Medication Medication Total Dose (Bolus/Oral) Medication Total Dosage/Unit 1% XYLOCAINE 20 mL Medications (Bolus/Oral) Medication Time Given Dosage/Unit Administered By Reason 1% XYLOCAINE 10/04/2017 7:44:48 AM 20 mL Edwin Mason 20 mL 1% XYLOCAINE given in lab by Edwin Mason in Left Groin via Subcutaneous. 10/04/2017 8:35:40 AM Financial #: [id number] 4 of 8 Patient Name: BARBARA LORENZO Study #: [id number] Initial MD: Edwin Mason Date of : 1940 Study Date: 10/04/2017 Medication (Drip) Medication Time Given Dosage/Unit Concentration/Unit Diluent (ml) Solution ISUPREL 10/04/2017 8:04:40 AM 2 mcg/min 1 mg 250 NaCl .9 2 mcg/min ISUPREL given in lab by Anesthesia, INDUSTRIAL ACCOUNTANT via Peripheral IV. Pump/Drip Flow = 30 ml/hr using NaCl .9 with a concentration of 1 mg in 250 ml. Ordered by Edwin Mason. Reason: As per physicians verbal order. Initial Case Assessment Cardiovascular HR Rhythm NIBP Chest Pain 80 sr 170/74 0 Edema Present Skin color Skin None Normal Warm Dry Circulatory - Right Pulses Dorsalis Pedis 3 Scale (0,1,2,3,4,d) Circulatory - Left Pulses Dorsalis Pedis 3 Scale (0,1,2,3,4,d) Circulatory - Lower Extremities Color Lower Right Color Lower Left Normal Normal Neurological State Oriented to time-place- Alert Moves all extremities person Respiration - General Respiration Rate SpO2 (%) (B/min) 18 98 10/04/2017 8:35:40 AM Financial #: [id number] 5 of 8 Patient Name: BARBARA LORENZO Study #: [id number] Initial MD: Edwin Mason Date of : 1940 Study Date: 10/04/2017 Final Case Assessment Cardiovascular HR Rhythm NIBP Chest Pain 74 sr 138/55 0 Edema Present Skin color Skin None Normal Warm Dry Circulatory - Right Pulses Dorsalis Pedis 3 Scale (0,1,2,3,4,d) Circulatory - Left Pulses Dorsalis Pedis 3 Scale (0,1,2,3,4,d) Circulatory - Lower Extremities Color Lower Right Color Lower Left Normal Normal Neurological State Oriented to time-place- Alert Moves all extremities person Respiration - General Respiration Rate SpO2 (%) (B/min) 18 100 Chronological Log Time Study Chronological Log 7:14:40 Patient arrived via Bed. 7:14:41 Patient Name, D.O.B, / Armband Verified By R.N. 7:14:42 Consent signed by the physician and the patient and verified by the Creative Art Director staff. 7:14:42 Pre-op and post- op instructions given; patient acknowledges understanding of instructions. 7:14:43 Verbal Stimulation=2 Physical Stimulation=2 Airway=2 Respiration=2 TOTAL=8. (0=absent, 1=li mited, 2=present) 7:14:52 Anesthesia at bedside. Assumes care of patient. Mukund 7:14:58 Patient has been NPO for More than 6Hrs. 7:14:58 Skin Breakdown- none per pt 7:14:59 Patient Warmer Placed on the Table. 10/04/2017 8:35:40 AM Financial #: [id number] Patient Name: BARBARA LORENZO Study #: [id number] Initial MD: Edwin Mason Date of : 1940 Study Date: 10/04/2017 7:15:00 Disposable Defibrillator Pads Placed On Patient. 7:15:02 Megan Prominences Protected 7:15:03 A # 20 IV was noted in the Hand (right). Grade = 0 0.9ns kvo 7:15:11 History and physical on the chart or being dictated. Assessment: Initial Case, HR=80 BPM, Rhythm=sr, ZPAE=058/74 mmhg, Chest Pain=0, Edema=None, Col or=Normal, Skin = Warm, Dry Right Pulses: Samuel Ped=3 Left Pulses: Samuel Ped=3 7:26:36 Lower Right Extremities: Color=Normal Lower Left Extremities: Color=Normal Neurological: State=Alert, Ox3, EVANGELISTA Respiration: Resp=18 B/min, SpO2=98 % 7:27:55 Table restraints applied according to hospital policy 7:29:30 Bilateral groins prepped with 2% chlorhexidine, and draped after a 3 minute waiting time. 7:39:28 Reference ECG taken Time Out. Correct patient, procedure, procedure equipment, site and side verified with physicia n present. Time 7:44:00 concurred by MD, individual staff and INDUSTRIAL ACCOUNTANT. Time Out #2 - Consents verified, patient in correct position, all results are labled and displa yed, safety precautions 7:44:25 taken, antibiotics administered. Time out concurred by MD, individual staff and INDUSTRIAL ACCOUNTANT in procedu re 7:44:41 Case Start 7:44:48 20 mL 1% XYLOCAINE given in lab by Edwin Mason in Left Groin via Subcutaneous. 7:46:16 Vascular access was obtained in the Fem Vein (right). 7:47:03 Vascular access was obtained in the Fem Vein (right). 7:47:05 Vascular access was obtained in the Fem Vein (right). 7:47:06 Vascular access was obtained in the Fem Vein (right). 7:47:11 A SHEATH, EPS, FR5 FAST CATH FR 5 was advanced into the Fem Vein (right) using the Modified Seldinger technique. 7:47:18 A SHEATH, EPS, FR5 FAST CATH FR 5 was advanced into the Fem Vein (right) using the Modified Seldinger technique. 7:47:23 A SHEATH, EPS, FR5 FAST CATH FR 5 was advanced into the Fem Vein (right) using the Modified Seldinger technique. 7:47:25 A SHEATH, EPS, FR6 FAST CATH FR 6 was advanced into the Fem Vein (right) using the Modified Seldinger technique. A CATHETER, JSN, QUAD FR 5 was advanced vis Fem Vein (right) and placed in the CS. Placement wa s visually 7:48:32 confirmed under fluoroscopy. A CATHETER, JSN, QUAD FR 5 was advanced vis Fem Vein (right) and placed in the HIS. Placement w as visually 7:49:09 confirmed under fluoroscopy. A CATHETER, JSN, QUAD FR 5 was advanced vis Fem Vein (right) and placed in the RVA. Placement w as visually 7:50:14 confirmed under fluoroscopy. A CATHETER, JSN, QUAD FR 5 was advanced vis Fem Vein (right) and placed in the HRA. Placement w as visually 7:50:22 confirmed under fluoroscopy. 7:51:28 EPS in progress 2 mcg/min ISUPREL given in lab by Anesthesia, INDUSTRIAL ACCOUNTANT via Peripheral IV. Pump/Drip Flow = 30 ml/hr using NaCl .9 with 8:04:40 a concentration of 1 mg in 250 ml. Ordered by Edwin Mason. Reason: As per physicians verbal o rder. 8:16:54 Isuprel off 8:17:13 All catheter(s) removed without difficulty 8:20:57 Sheaths removed; pressure applied to access sites by HH. 10/04/2017 8:35:40 AM Financial #: [id number] Patient Name: BARBARA LORENZO Study #: [id number] Initial MD: Edwin Mason Date of : 1940 Study Date: 10/04/2017 Assessment: Final Case, HR=74 BPM, Rhythm=sr, QVJX=235/55 mmhg, Chest Pain=0, Edema=None, How[place] r=Normal, Skin = Warm, Dry Right Pulses: Samuel Ped=3 Left Pulses: Samuel Ped=3 8:29:41 Lower Right Extremities: Color=Normal Lower Left Extremities: Color=Normal Neurological: State=Alert, Ox3, EVANGELISTA Respiration: Resp=18 B/min, YjI5=421 % 8:30:39 Case End 8:30:40 No case complications noted. 8:30:40 Cine recording checked. 8:31:18 EP Procedure was performed. 8:31:23 Ablation procedure performed: ~ABLATION TYPE~. none EPS only 8:31:34 DOCU called. Spoke to Allan 8:31:47 Bedside Report will be given. 8:31:52 Defibrillator and ground pads removed. Skin intact. 8:35:29 Sterile dressing applied to site. Site wnl 8:37:58 [facility] - Contrast Media Used In Study Contrast Total Opened (mL) Total Used (mL) Total Wasted (mL) Unspecified 0 0 0 End Study - Radiation Exposure Fluoro Time (minutes) 0.8 End Study - Sheaths Sheaths Pulled By Sheath Hold Time (min) Maira Wick 15 End Study - Patient Disposition Complications Transferred To Interventional Outcome No Telemetry Bed successful 10/04/2017 8:35:40 AM Financial #: [id number]
[2017-10-04] MEDS ORDERED: PROPOFOL 200 MG/20 ML AMP IV ONE (12:00)
[2017-10-04] MEDS ORDERED: ONDANSETRON HCL 4 MG/2 ML VIAL IV ONE (12:00)
--- NOTE | 2017-10-04 21:11 | EKG ---
Date Performed: 10/04/2017 Time Performed: 06:46:16 PTAGE: 76 years EKG: Sinus rhythm . Left axis deviation RBBB with left anterior fascicular block Inferior and lateral ST elevation - po ssible early repolarization Abnormal ECG PREVIOUS TRACING : 09/08/2017 07.07 Since the previous tracing, no significant change noted DOCTOR: Rick Carias Interpretating Date/Time 10/04/2017 21:09:56
[2017-10-11] MEDS ORDERED: PRED20 PO (07:00)
[2017-10-11] MEDS ORDERED: NACCAP PO (07:00)
== END 2017-10-04 13:56 | disposition home or self-care (01) ==
LOC: HDOC 05:49 → HDIC 05:49 → HDOC 13:56
PROVIDERS: ATTEND Internal Medicine Interventional Cardiology
DX: I48.91 Unspecified atrial fibrillation (principal); I35.0 Nonrheumatic aortic (valve) stenosis; I44.0 Atrioventricular block, first degree; I45.2 Bifascicular block; I25.10 Atherosclerotic heart disease of native coronary artery without angina pectoris; E78.5 Hyperlipidemia, unspecified; R06.02 Shortness of breath; Z79.01 Long term (current) use of anticoagulants; Z95.1 Presence of aortocoronary bypass graft; I10 Essential (primary) hypertension
CPT/HCPCS: 00537; 80048; 85025; 85610; 85730; 86850; 86900; 86901; 93005; 93620; 93623; C1730; J1644; J2250; J2405; J3010; J7030

== ENCOUNTER → 2017-10-09 | Outpatient (CLI) | payer MEDICARE ==
[~2017-10-09] MED LIST changes: -LEVO750T3 PO; +LISI-519 PO; -MUPI2OIN TOPICAL; +PLAV75TA29 PO
[2017-10-09 11:40] LABS: BASOPHIL # 0.1 TH/MM3 (0-0.2); BASOPHIL % 0.8 % (0.0-2.0); EOSINOPHIL # 0.2 TH/MM3 (0-0.4); EOSINOPHIL % 1.9 % (0.0-4.0); HEMATOCRIT 39.5 % (35.0-46.0); HEMOGLOBIN 13.2 GM/DL (11.6-15.3); LYMPH % 14.7 % (9.0-44.0); LYMPHOCYTE # 1.2 TH/MM3 (1.0-4.8); MEAN CELL VOLUME 83.1 FL (80.0-100.0); MEAN CORPUSCULAR HEMOGLOBIN 27.7 PG (27.0-34.0); MEAN CORPUSCULAR HGB CONC 33.4 % (32.0-36.0); MEAN PLATELET VOLUME 9.4 FL (7.0-11.0); MONO % 10.3 % (0.0-8.0); MONOCYTE # 0.9 TH/MM3 (0-0.9); NEUT % 72.3 % (16.0-70.0); PLATELET COUNT 271 TH/MM3 (150-450); RED BLOOD COUNT 4.76 MIL/MM3 (4.00-5.30); RED CELL DISTRIBUTION WIDTH 15.4 % (11.6-17.2); WHITE BLOOD COUNT 8.3 TH/MM3 (4.0-11.0)
[2017-10-09 11:51] LABS: INTERNATIONAL NORMALIZED RATIO 1.1 RATIO; PROTHROMBIN TIME - PATIENT 11.4 SEC (9.8-11.6)
[2017-10-09 12:52] LABS: BICARBONATE 21.7 MEQ/L (21.0-32.0); CALCIUM 8.9 MG/DL (8.5-10.1); CREATININE 0.88 MG/DL (0.50-1.00)
== END ==
LOC: CLAB 10:46
PROVIDERS: ATTEND Internal Medicine
DX: Z01.812 Encounter for preprocedural laboratory examination (principal); I35.0 Nonrheumatic aortic (valve) stenosis
CPT/HCPCS: 36415; 80048; 85025; 85610; 86850; 86900; 86901

== ENCOUNTER 2017-10-11 05:55 | Inpatient (IN) | payer MEDICARE ==
[2017-10-11] VITALS (10 sets, daily range): BP systolic 101–150; BP diastolic 42–73; PULSE 59–99; RESP 16–18; TEMP 94–98.6; O2SAT 97–99
[~2017-10-11] VITALS: Ht 165.1 cm; Wt 55.0 kg
[~2017-10-11 05:55] MED LIST changes: -LISI-519 PO; -NACCAP PO; -PLAV75TA29 PO; -PRED20 PO
[2017-10-11] MEDS ORDERED: MUPIROCIN 2% OINT 1 APPLIC/GM SYRINGE EACH NARE PRN (06:15)
[2017-10-11] MEDS ORDERED: ASPIRIN 325 MG TAB PO PRN (06:15)
[2017-10-11] MEDS ORDERED: CHLORHEXIDINE GLUCONATE 2 % 1 PACK (2 CLOTHS) TOPICAL PRN ×2 (06:15→06:30)
[2017-10-11] MEDS ORDERED: VANCOMYCIN 1 GM/200 ML PREMIX ON-CALL IV SCH (06:15)
[2017-10-11] MEDS ORDERED: SODIUM CHLOR 0.9% 1000 ML 1,000 ML IV SCH (06:15)
[2017-10-11] MEDS ORDERED: METOPROLOL TARTRATE 25 MG TAB PO PRN (06:30)
[2017-10-11] MEDS ORDERED: SODIUM CHLORID 0.9% 500 ML IV PRN (06:30)
[2017-10-11] MEDS ORDERED: LACTATED RINGER'S 1000 ML IV PRN (06:30)
[2017-10-11] MEDS ORDERED: PRED20 PO ×2 (07:00)
[2017-10-11] MEDS ORDERED: NACCAP PO ×2 (07:00)
[2017-10-11] MEDS ORDERED: HEPARIN SODIUM - IV 10,000 UNITS/10 ML VIAL ONE (07:23)
[2017-10-11] MEDS ORDERED: PROTAMINE SULFATE 50 MG/5 ML VIAL ONE (07:23)
[2017-10-11] MEDS ORDERED: MIDAZOLAM HCL 2 MG/2 ML VIAL ONE (07:26)
--- NOTE | 2017-10-11 08:08 | MH ---
cc: Sean Rosen MD DATE OF ADMISSION: 10/11/2017 INDICATION: Symptomatic aortic stenosis. HISTORY OF PRESENT ILLNESS: This is a very nice 76-year-old female. She has a past medical history for arthritis, atrial fibrillation, coronary artery disease, hypertension in addition to bypass surgery and now severe aortic stenosis. She completed a preoperative assessment for her aortic valve and was seen by Cardiothoracic Surgery, Dr. Lara, Dr. Malin. She was felt to be intermediate to high risk for surgical replacement given her prior bypass and age. She was worked up for transcatheter aortic valve replacement. She is now admitted here today for the procedure. PAST MEDICAL HISTORY: She has a history of atrial fibrillation, coronary artery disease, hyperlipidemia, hypertension, severe aortic stenosis, chronic kidney disease, GERD, hyperlipidemia, hypothyroidism. MEDICATIONS: 1. Ativan. 2. Simvastatin. 3. Metoprolol. 4. Amlodipine. 5. Symbicort. 6. Prednisone. 7. Levothyroxine. 8. Coumadin. ALLERGIES: SHELLFISH, IODINE, DEMEROL, PENICILLIN, POTASSIUM, IV DYE, CONTRAST, GADOLINIUM. FAMILY HISTORY: Denies any family history of early coronary disease or sudden cardiac . SOCIAL HISTORY: Denies any alcohol, tobacco or drug use. REVIEW OF SYSTEMS: A 12-point review of system was performed and negative unless otherwise noted in history of present illness. PHYSICAL EXAMINATION: VITAL SIGNS: Temperature is 98, pulse ____, blood pressure 114/65 mmHg. GENERAL: Alert and oriented x3, in no acute distress. HEENT: Shows pupils reactive to light and accommodation. Extraocular muscles intact. NECK: No elevation of jugular venous distention. No thyromegaly. No lymphadenopathy, no carotid bruits. LUNGS: Clear to auscultation bilaterally. CARDIOVASCULAR: Irregular with a 3/6 crescendo-decrescendo murmur at the right sternal border. ABDOMEN: Nontender, nondistended with good bowel sounds. No hepatosplenomegaly. EXTREMITIES: Show no clubbing, cyanosis or edema. Good peripheral pulses. NEUROLOGIC: Cranial nerves intact. Motor, sensory grossly intact. LABORATORY DATA: WBC 8.3, hemoglobin is 13.2, platelet count is 271. INR is 1.1. Sodium 142, potassium 4.0, BUN is 17, creatinine 0.88. TSH 0.46. Preoperative workup: STS score 4.0%, [place] Heart Association class III. BMI 20. Frailty score 2/4. Electrocardiogram shows sinus rhythm, right bundle branch block, left anterior fascicular block. Pulmonary function test shows FEV1 of 1.30, consistent with mild obstructive pulmonary disease. Echocardiogram performed on 08/11/2017 shows maximum jet velocity of 4.36 meters per second, mean gradient 44 mmHg, and calculated aortic valve area of 0.67 cm2. Ejection fraction 60-65 percent, nkyl-[id number] aortic regurgitation, mild mitral and tricuspid regurgitation. Cardiac catheterization performed on 09/08/2017 shows a widely patent LÓPEZ to LAD. Left main and left anterior descending coronary has mild disease. Left internal mammary to the left anterior descending coronary is atretic, likely due to competitive flow. Saphenous vein graft to an obtuse marginal branch is widely patent. Right coronary has mild luminal irregularities. A CT analysis performed on 09/08/2017 shows a short annulus diameter of 19.8 mm and a long annulus diameter of 27.7 mm with an annular area of 436 mm2. Sinus of Valsalva diameter is 29.2 mm with the sinotubular junction diameter 27.8 mm. Left coronary height is 11.3 mm and right coronary height is 13.4 mm. Iliac arteries: Right has a minimal luminal diameter of 4.8 mm and the left is 7.1 mm. ASSESSMENT: 1. Severe aortic stenosis. 2. History of coronary artery disease, prior bypass surgery. 3. Atrial fibrillation. PLAN: Risks, benefits, and alternatives discussed with the patient. The patient understood risks and consented to proceed. We will approach for delivery of a 26 mm Daniels S3 transcatheter aortic valve through left common femoral approach. She has had a prior electrophysiology study. Will plan for general anesthesia and temporary transvenous pacemaker placement periprocedurally. MD TG Heck/JL , 07:43 AM , 08:07 AM
--- NOTE | 2017-10-11 09:46 | PD.PROCEDR ---
Procedure Note Procedure Procedure: Transesophageal Echocardiography Diagnosis: Severe symptomatic aortic stenosis Indications: Perioperative planning for transcatheter aortic valve replacement Consent: Obtained Anesthesia: General endotracheal anesthesia Description of the Procedure: The patient was sedated and mechanically ventilated. The echo probe was inserted easily and without resistance. At the conclusion of the procedure, the echo probe was removed. Please see detailed echocardiogram report for formal findings. Preliminary Findings (not confirmed): Pre-procedure: 1) grossly normal biventricular function 2) severe aortic stenosis 3) mild aortic insufficiency 4) trace mitral regurgitation 5) trace tricuspid regurgitation 6) no evidence of intra-atrial shunting by color flow Doppler 7) no pericardial effusion Post-procedure: 1) successful placement of transcatheter aortic valve 2) no evidence of bioprosthetic valve stenosis 3) minimal/trace perivalvular leak 4) no pericardial effusion The patient tolerated the procedure well with no hemodynamic instability. There were no immediate complications noted. There was minimal EBL. I personally performed the procedure. Carlos Carney MD Oct 11, 2017 09:46
--- NOTE | 2017-10-11 09:49 | PD.OP ---
Operative Report Date of Surgery: Oct 11, 2017 Preoperative Diagnosis: (1) Aortic stenosis (2) Diastolic heart failure Postoperative Diagnosis: same Procedure: Transcatheter aortic valve replacement with a 26 Glen 3 tissue valve Balloon aortic valvuloplasty with a 23 x 4 Daniels balloon Percutaneous bilateral femoral artery access with Perclose closure on left Right femoral venous access Aortography Fluoroscopy Anesthesia: Dr. Ochoa Surgeon: Minoo Morales Co-surgeon - Dr. Rosen Compacting Machine Operator/Tender(s): Dr. Malin Operation and Findings: The risks, benefits, complications, treatment options, and expected outcomes were discussed with the patient. The possibilities of reaction to medication, pulmonary aspiration, perforation of viscus, bleeding, recurrent infection, the need for additional procedures, failure to diagnose a condition, and creating a complication requiring transfusion or operation were discussed with the patient. The patient concurred with the proposed plan, giving informed consent. The site of surgery properly noted/marked. The patient was taken to the hybrid operating room, identified as Alicia Nieto and the procedure verified as Transcatheter Aortic Valve Replacement. A Time Out was held and the above information confirmed. Standard monitoring lines and Moreno catheter were placed. General anesthesia was induced. The patient was prepped and draped in a sterile fashion. Initially, right femoral arterial and venous access was acquired using a Seldinger percutaneous technique. The details of this procedure were dictated under separate note by cardiology. Once a pigtail was positioned in the aortic annulus and a temporary transvenous pacemaker wire was placed in the right ventricular apex and tested, the left femoral artery was accessed using a needle followed by a guidewire under fluoroscopic guidance. The patient was heparinized and Perclose devices deployed for later closure. Serial dilators were used to dilate the left femoral artery to 14 Moldovan caliber. The Daniels sheath was then inserted into the external iliac artery up to the distal abdominal aorta. Arch aortography was performed to define the implant view. A balloon aortic valvuloplasty was then performed using a 23 x 4 balloon with the patient being paced at 180 beats per minute. A 26 Daniels Glen 3 transcatheter aortic valve was then positioned in the annulus and deployed with the patient being paced at 180 beats per minute. Following deployment, the valve apparatus was withdrawn and arch aortography and LEI were performed to assess the valve. The valve had no significant perivalvular leaks. Gradients were then measured and the sheath was removed with securing the Perclose sutures for hemostasis. Protamine was administered. Sterile dressings were placed. At the end of the operation, all sponge, instruments, and needle counts were correct. The patient was transferred to the CVICU in stable condition. Findings: Tiny PVL observed. Patient also experienced heart block and was stable with being paced. Implants: 26 Glen 3 tissue valve Complications: Transient heart block, patient had recent EP study and is followed by EP. Disposition: to CVICU in stable condition Minoo Morales MD Oct 11, 2017 09:49
--- NOTE | 2017-10-11 09:57 | PD.CONS ---
[facility] Service Critical Care Medicine Consult Requested By Dr. Rosen Reason for Consult perioperative management of medical comorbidities Primary Care Physician Sean Flores MD History of Present Illness This is a 76yF with severe symptomatic aortic stenosis that presents for elective transcatheter aortic valve replacement. she underwent TAVR, complicated by ventricular quiescence when the valve crossed the LVOT, requiring transvenous pacing. She arrives to the CVICU extubated in stable condition, arousing from anesthesia. due to her somnolence arousing from anesthesia, complete ROS is unobtainable and the history is largely taken from the medical record. Review of Systems ROS Limitations: Clinical Condition, Altered Mental Status Eyes: DENIES: Eye pain Respiratory: DENIES: Shortness of breath Cardiovascular: DENIES: Chest pain Neurologic: DENIES: Headache ROS arousing from anesthesia Past Family Social History Allergies: Coded Allergies: meperidine (Unverified Allergy, Mild, CLAUSTROPHOBIA, 10/04/17) penicillin G (Unverified Allergy, Mild, Rash, 10/04/17) diatrizoate meglumine (Unverified Allergy, Unknown, NAUSEA AND VOMITING, ) gadobenic acid (Unverified Allergy, Unknown, NAUSEA AND VOMITING, 10/04/17) gadodiamide (Unverified Allergy, Unknown, NAUSEA AND VOMITING, 10/04/17) gadoteridol (Unverified Allergy, Unknown, NAUSEA AND VOMITING, 10/04/17) iodine (Unverified Allergy, Unknown, Rash, 10/04/17) iodixanol (Unverified Allergy, Unknown, NAUSEA AND VOMITING, 10/04/17) iohexol (Unverified Allergy, Unknown, NAUSEA AND VOMITING, 10/04/17) potassium iodide (Unverified Allergy, Unknown, Rash, 10/04/17) povidone-iodine (Unverified Allergy, Unknown, Rash, 10/04/17) sodium iodide (Unverified Allergy, Unknown, Rash, 10/04/17) sodium iodide (Unverified Allergy, Unknown, Rash, 10/04/17) Uncoded Allergies: SHELLFISH (Allergy, Mild, Rash, 01/19/04) Past Medical History Atrial fibrillation and coronary artery disease Hyperlipidemia Hypertension Severe aortic stenosis Chronic kidney disease, unknown stage GERD Hyperlipidemia Hypothyroidism Past Surgical History Appendectomy CABG 2 in 1991 Right eye cataract surgery Cholecystectomy Colonoscopy EGD Hysterectomy Open lung biopsy of the right lung with minithoracotomy Thyroidectomy Tonsillectomy Reported Medications Prednisone 20 Mg Tab 40 Mg PO DIRECTED Nac 600 (Acetylcysteine (Nutrient)) 600 Mg Cap 1 Tab PO BID Warfarin 5 Mg Tab 5 Mg PO DAILY Symbicort Inh (Budesonide/Formoterol Fumarate) 160-4.5 Mcg/Act Aero 2 Puff INH Q12HR Simvastatin 20 Mg Tab 20 Mg PO DAILY Metoprolol Tartrate 25 Mg Tab 25 Mg PO BID Levothyroxine (Levothyroxine Sodium) 100 Mcg Tab 100 Mcg PO DAILY Latanoprost Opth Drops (Latanoprost) 0.005% Drops 1 Drop EACH EYE HS Refrigerate until opened. Atrovent HFA 12.9 GM Inh (Ipratropium [place]) 17 Mcg/Actuation Aer 2 Puff INH BID Amlodipine (Amlodipine Besylate) 5 Mg Tab 5 Mg PO DAILY Active Ordered Medications See MAR Family History Reviewed and found to be noncontributory to her acute illness Social History Denies tobacco or EtOH Physical Exam Vital Signs Vital Signs Date Time Temp Pulse Resp B/P (MAP) Pulse Ox O2 Delivery O2 Flow Rate FiO2 10/11/17 06:49 98.6 99 18 114/65 (81) 97 Physical Exam GENERAL: Frail elderly female, lying in bed, arousing from anesthesia HEENT: Normocephalic. Atraumatic. Pupils equal, round, reactive, conjugate. Mucous membranes are moist NECK: Trachea is midline. There is no JVD. Right IJ introducer sheath with transvenous pacer in place, site is clean dry, dressing is intact CHEST: Equal chest rise. Nasal cannula oxygen. Unlabored. CARDIOVASCULAR: V paced rhythm, rate of 60. Transvenous pacer set VVI at a rate of 60. ABDOMEN: Soft, nontender, nondistended. No guarding. MUSCULOSKELETAL: Pulses 2+. No peripheral edema. Bilateral groin incisions clean dry, dressing intact. No evidence of hematoma. Distal pulses are dopplerable. NEUROLOGICAL: RASS -2. Arousing from anesthesia. No focal deficits. Moves all extremities. Assessment and Plan Assessment and Plan Assessment: 76-year-old female postop day 0 status post transcatheter aortic valve replacement. Admit ICU. Careful monitoring. Close neurovascular checks and urine output watch. s/p TAVR 4/18 via common iliac approach - anticoagulation per Dr. 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 - OOB after flat time Hypertension - restart anti-htn as needed, likely in AM - goal sbp < 180 Hyperlipidemia - restart home statin Hypothyroidism - restart home synthroid CKD, unknown stage - mivf - daily bmp GERD - home ppi atrial fibrillation - now paced rhythm - hold rate controlling drugs Critical care medicine will continue to follow along as long as patient remains in the CVICU. Carlos Carney MD Oct 11, 2017 09:57
[2017-10-11] MEDS ORDERED: POTASSIUM PHOSPHATE MONOBASIC 500 MG TAB PO PRN (10:00)
[2017-10-11] MEDS ORDERED: POTASSIUM CHLOR 20 MEQ PREMIX 100 ML IV PRN ×2 (10:00)
[2017-10-11] MEDS ORDERED: POTASSIUM CHLOR 40 MEQ PREMIX 100 ML IV PRN ×2 (10:00)
[2017-10-11] MEDS ORDERED: RESP: ALBUTEROL 2.5 MG/IPRATROPIUM 0.5 MG NEB (PRN) NEB (10:00)
[2017-10-11] MEDS ORDERED: MAGNESIUM SULFATE INJ 4 GM in SODIUM CHLORIDE 0.9% INJ 92 ML IV PRN (10:00)
[2017-10-11] MEDS ORDERED: POTASSIUM PHOSPHATE INJ 30 MMOL in SODIUM CHLOR 0.9% 250 ML INJ 250 ML IV PRN (10:00)
[2017-10-11] MEDS ORDERED: POTASSIUM CHLORIDE 25 MEQ EFFERVESCENT TAB PO PRN (10:00)
[2017-10-11] MEDS ORDERED: POTASSIUM PHOSPHATE MONOBASIC 500 MG TAB PO/TUBE PRN (10:00)
[2017-10-11] MEDS ORDERED: SODIUM PHOSPHATE INJ 30 MMOL in SODIUM CHLOR 0.9% 250 ML INJ 240 ML IV PRN (10:00)
[2017-10-11] MEDS ORDERED: MAGNESIUM OXIDE 400 MG TAB PO PRN (10:00)
[2017-10-11] MEDS ORDERED: MAGNESIUM SULFATE INJ 2 GM in SODIUM CHLORIDE 0.9% INJ 96 ML IV PRN (10:00)
[2017-10-11] MEDS ORDERED: IOHEXOL 350 MG/ML 100 ML BTL (for RAD DIAG) IVCONTRAST ONE (10:03)
[2017-10-11] MEDS ORDERED: SODIUM CHLOR 0.9% 1000 ML INJ 1,000 ML IV SCH (10:24)
[2017-10-11] MEDS ORDERED: ATROPINE SULFATE 1 MG/ML VIAL IV PUSH PRN (10:30)
[2017-10-11] MEDS ORDERED: BENZOCAINE-MENTHOL (SUGAR FREE) 15 MG-3.6 MG LOZENGE BUCCAL PRN (10:30)
[2017-10-11] MEDS ORDERED: CLOPIDOGREL 300 MG TAB PO ONE (10:30)
[2017-10-11] MEDS ORDERED: ACETAMINOPHEN 325 MG TAB PO PRN (10:30)
[2017-10-11] MEDS ORDERED: DEXTROSE 50% IN WATER 50 ML VIAL(D50) IV PUSH PRN (10:30)
[2017-10-11] MEDS ORDERED: MISC INFORMATION OTHER ONE (10:30)
[2017-10-11] MEDS ORDERED: GLUCAGON 1 MG/ML VIAL OTHER PRN (10:30)
[2017-10-11] MEDS ORDERED: ONDANSETRON HCL 4 MG/2 ML VIAL IV PUSH PRN (10:30)
[2017-10-11] MEDS: RESP: ALBUTEROL 2.5 MG/IPRATROPIUM 0.5 MG NEB (SCH) INH ×3 (11:20→21:25)
[2017-10-11] MEDS ORDERED: ROCURONIUM INJ 50 MG/5 ML SYRINGE IV PUSH ONE (12:00)
[2017-10-11] MEDS ORDERED: LACTATED RINGER'S 1000 ML INJ 1,000 ML IV ONE (12:00)
[2017-10-11] MEDS ORDERED: PHENYLEPH/NS 1000 MCG/10 ML SYR IV ONE (12:00)
[2017-10-11] MEDS ORDERED: METOPROLOL TARTRATE 5 MG/5 ML VIAL IV ONE (12:00)
[2017-10-11] MEDS ORDERED: SODIUM CHLORID 0.9% 500 ML INJ 500 ML IV ONE (12:00)
[2017-10-11] MEDS ORDERED: PROPOFOL 200 MG/20 ML AMP IV ONE (12:00)
[2017-10-11] MEDS ORDERED: SODIUM CHLOR 0.9% 250 ML INJ 250 ML IV ONE (12:00)
[2017-10-11] MEDS ORDERED: AMIODARONE HCL 150 MG/3 ML VIAL IV ONE (12:00)
[2017-10-11] MEDS ORDERED: DEXTROSE 5% IN WATER 100ML INJ 100 ML IV ONE (12:00)
[2017-10-11] MEDS ORDERED: GLYCOPYRROLATE 1 MG/5 ML SYRINGE IV PUSH ONE (12:00)
[2017-10-11] MEDS ORDERED: NEOSTIGMINE 5 MG/5 ML SYRINGE IV PUSH ONE (12:00)
--- NOTE | 2017-10-11 12:53 | MP ---
cc: Sean Rosen MD DATE OF OPERATION: 10/11/2017 PROCEDURE: Transcatheter aortic valve replacement. PHOTO FINISHER: Sean Rosen MD [facility] SURGICAL TEAM: Dr. Minoo Lara, Dr. Adithya Malin. PROCEDURES PERFORMED: 1. Fluoroscopy with interpretation. 2. Ascending aortography. 3. Aortic balloon valvuloplasty. 4. Transcatheter aortic valve replacement with an Daniels DARSHAN 3, 26 mm Bioprosthetic valve. 4. Temporary transvenous pacemaker. 5. Transesophageal echocardiogram. METHOD: Risks, benefits and alternatives discussed with the patient. The patient understood and consented to proceed. The patient was brought to the cardiac catheterization lab, placed on the catheterization table. Bilateral groins were prepped and draped. The patient was put under general anesthesia with intubation. A right internal jugular sheath was then placed and a balloon-tipped transvenous temporary pacemaker was advanced into the right ventricular apex and appropriate capture and pacing was confirmed. The right common femoral artery was cannulated and a 5-Ugandan, 11 cm sheath was placed without difficulty. The right femoral artery was cannulated and a 5-Ugandan, 11 cm sheath was placed without difficulty. The left common femoral artery was cannulated under fluoroscopic angiographic guidance and a micropuncture needle advanced with exchange for an 8-Ugandan, 11 cm sheath. An Daniels 14-Ugandan E-sheath was then advanced through the left common femoral and iliac arteries up to the level of the descending aorta. ASCENDING AORTOGRAPHY: 1. Ascending aortography was performed and a left anterior oblique 5 in 0 caudal cranial view, which showed good parallax with the valve leaflets. There is no significant aortic root dilation. AORTIC BALLOON VALVULOPLASTY: Heparin was administered throughout the entire procedure to maintain appropriate anticoagulation. A 6-Ugandan AL1 catheter was advanced to the ascending aorta. An Amplatz Super Stiff straight-tip wire was then advanced across the aortic valve. An AL1 catheter advanced into the left ventricle. A 0.035-inch, 260 cm J-tip wire was advanced into the left ventricular apex. A 6-Ugandan angled pigtail catheter was advanced to the apex. The wire was removed. A [employer] Confida wire was then advanced to the left ventricular apex and the pigtail catheter removed. A 23 mm aortic valvuloplasty balloon was then advanced to the aortic valve. Rapid ventricular pacing was performed and the valve deployed. Repeat transesophageal echocardiogram revealed moderate aortic valve insufficiency. The Daniels valve was then prepped. The Daniels valve was advanced over the Confida wire up and across the aortic valve. Appropriate positioning was confirmed. Under rapid pacing and with ventilator hold, the device was then carefully deployed. Repeat ascending aortography showed widely patent coronary arteries and appropriate placement. There was trace perivalvular leak noted by transesophageal echocardiogram with no residual gradient. The left sheath was then closed with 2 Perclose devices with good hemostasis. The right common femoral artery and vein were closed with 5-Ugandan Mynx devices with good hemostasis. IMMEDIATE TRANSESOPHAGEAL ECHOCARDIOGRAM INTRAOPERATIVE FINDINGS: 1. Aortic valve area 1.1 cm2. 2. Post-implant mean gradient 2 mmHg. 3. Post-implant peak velocity 9.8 meters per second. 4. Aortic insufficiency severity trace. CONCLUSIONS: 1. Successful transcatheter aortic valve replacement with Daniels DARSHAN 3 Bioprosthetic aortic valve. 2. Successful aortic valvuloplasty. 3. Successful utilization of temporary transvenous pacemaker. The patient appeared to tolerate the procedure well. We will monitor for any post-procedural bleeding complications. We will need to further evaluate underlying rhythm. At this point she seems to be fairly pacemaker dependent with bradycardia and prolonged sinus pauses. Dr. Mason of Electrophysiology input would be appreciated. She will be transferred to the intensive care unit and loaded on clopidogrel. Sean Rosen MD TG/SB , 10:42 AM , 12:51 PM
[2017-10-11] MEDS ORDERED: IOHEXOL 350 MG/ML 100 ML BTL (for Cath Lab) OTHER ONE (15:19)
[2017-10-11] MEDS: BUDESONIDE-FORMOTEROL 160/4.5 MCG INHALER INH SCH (21:00)
--- NOTE | 2017-10-11 21:49 | EKG ---
Date Performed: 10/11/2017 Time Performed: 07:30:20 PTAGE: 76 years EKG: Atrial fibrillation with rapid ventricular response. 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
[2017-10-12] VITALS (16 sets, daily range): BP systolic 110–162; BP diastolic 53–70; PULSE 80–103; RESP 16–18; TEMP 97.9–98.4; O2SAT 95–98
[2017-10-12] MEDS ORDERED: LACTATED RINGER'S 1000 ML IV PRN (02:15)
[2017-10-12] MEDS ORDERED: SODIUM CHLORID 0.9% 500 ML IV PRN (02:15)
[2017-10-12] MEDS ORDERED: POVIDONE IODINE 5% (ANTISEPSIS KIT) 4 APPLICATIONS EACH NARE PRN (02:15)
[2017-10-12] MEDS ORDERED: CHLORHEXIDINE GLUCONATE 2 % 1 PACK (2 CLOTHS) TOPICAL PRN (02:15)
[2017-10-12] MEDS: RESP: ALBUTEROL 2.5 MG/IPRATROPIUM 0.5 MG NEB (SCH) INH ×4 (03:55→19:56)
[2017-10-12 04:12] LABS: HEMATOCRIT 31.5 % (35.0-46.0); HEMOGLOBIN 10.5 GM/DL (11.6-15.3); MEAN CELL VOLUME 82.9 FL (80.0-100.0); MEAN CORPUSCULAR HEMOGLOBIN 27.5 PG (27.0-34.0); MEAN CORPUSCULAR HGB CONC 33.2 % (32.0-36.0); MEAN PLATELET VOLUME 9.5 FL (7.0-11.0); PLATELET COUNT 191 TH/MM3 (150-450); RED CELL DISTRIBUTION WIDTH 15.2 % (11.6-17.2); WHITE BLOOD COUNT 10.4 TH/MM3 (4.0-11.0)
[2017-10-12 04:23] LABS: BICARBONATE 22.9 MEQ/L (21.0-32.0); CALCIUM 8.3 MG/DL (8.5-10.1); CREATININE 0.8 MG/DL (0.50-1.00)
[2017-10-12] MEDS: LEVOTHYROXINE SODIUM 100 MCG TAB PO SCH (05:47)
[2017-10-12] MEDS ORDERED: VANCOMYCIN HCL 1000 MG VIAL ONE (07:13)
[2017-10-12] MEDS ORDERED: LIDOCAINE HCL 2% 50 ML VIAL ONE (07:13)
[2017-10-12] MEDS ORDERED: VANCOMYCIN 500 MG VIAL ONE (07:13)
[2017-10-12] MEDS ORDERED: SODIUM CHLORIDE 0.9% FLUSH 10 ML FLUSH IV FLUSH PRN (08:00)
[2017-10-12] MEDS ORDERED: MIDAZOLAM HCL 2 MG/2 ML VIAL ONE (08:03)
--- NOTE | 2017-10-12 08:42 | CATHPROC ---
[facility] HIS Report Study Information Study Number Admission Scheduled Start Study Start [id number] Oct 11 2017 5:55AM 10/12/2017 Oct 12 2017 6:39AM [place] [facility] Cardiac Pacer/ICD Admit Source Facility Department Other [facility] Physician and Clinical Staff Initial [facility] Physician Practice Consultant Poppy Oseguera,ASSEMBLY LINE WORKER TECH2 Other Anesthesia, AERIAL LINEMAN Recorder Mckenzie Xiong ,BSN Recorder Karen Snell,DA Scrub Dain Issa,RT(R) Procedures Performed Procedure Lead Insertion Equipment Time Geologic Technician Description Size Mfg Part Number Used/Scraped DERMABOND, ADHESIVE SKIN [id number] 07:36 CORDIS/PACER * Used GLUE MINI *[id number] TP-1103 07:36 MED[employer] SUTURE, STRIP PLUS 1/2" * Used *[id number] 07:36 MEDLINE PACER SHERWOOD, LIMB * 2530 *[id number] Used [id number] 07:36 MEDLINE PACER PACK, PACER CUSTOM * Used *[id number] 07:38 [employer] PACER SAFE SHEATH, FR8, 13CM FR 8 [id number] Used 07:38 [employer] MEDICAL PACER SAFE SHEATH, FR8, 13CM FR 8 CLS-1008 Used 07:33 Needle Sponge Count 2 22 Used 07:33 Needle Sponge Count 20 200 Used 07:33 Needle Sponge Count 4 4 Used SUTURE, 0 ETHIBOND [CT1] (CX21D), 8pk SUTURE, 2-0 VICRYL [CT1] ([id number]) SUTURE, 2-0 VICRYL [CT1] ([id number]) [id number] 07:36 [employer],WARM AIR CCL * Used *[id number] LEAD, TENDRIL STS 2087TC 07:42 [employer] [employer] 52CM 2088TC/52CM Used 52CM LEAD, TENDRIL STS 2087TC 07:36 [employer] 58CM 2088TC/58CM Used 58CM PACEMAKER, ASSURITY DR KATZ 07:49 [employer] [id number] Used MRI [facility] PAD, ELECTROSURGICAL 07:36 * [id number] *[id number] Used SURGICAL GROUNDING ORANGE [id number] 07:36 [employer] BLAINE. / * Used *[id number] Equipment Model, Serial, Lot Number and Expiration Data Description Model Number Serial Number Lot Number Expiration Date LEAD, TENDRIL STS 8TC 52CM 8TC-52 [id number] 08-23-2020 LEAD, TENDRIL STS 2088TC 58CM 2087tc-58 [id number] 08-23-2020 PACEMAKER, ASSURITY DR KATZ MRI [id number] 02-23-2019 Medication Medication Total Dose (Bolus/Oral) Medication Total Dosage/Unit 2% XYLOCAINE 10 mL Medications (Bolus/Oral) Medication Time Given Dosage/Unit Administered By Reason 2% XYLOCAINE 10/12/2017 7:32:49 AM 10 mL Edwin Mason 10 mL 2% XYLOCAINE given in lab by Edwin Mason in Left chest via Subcutaneous. Ordered by Александр Mason. Medication (Drip) Medication Time Given Dosage/Unit Concentration/Unit Diluent (ml) Solution IV Solutions 10/12/2017 7:18:34 AM 50 mL (IV) NaCl .9 IV Solutions given in lab by Anesthesia, AERIAL LINEMAN in Right Hand via Peripheral IV. Pump/Drip Flow using N aCl .9. Ordered by Edwin Mason. VANCOMYCIN DRIP 10/12/2017 7:23:34 AM 1 g 1 g VANCOMYCIN DRIP given in lab by Anesthesia, AERIAL LINEMAN via Peripheral IV. Ordered by Edwin Mason. Initial Case Assessment Cardiovascular HR Rhythm NIBP Chest Pain 75 paced 152/67 0 Edema Present Skin color Skin None Normal Warm Dry Neurological State Oriented to time-place- Alert Moves all extremities person Respiration - General Respiration Rate SpO2 (%) O2 (lpm) (B/min) 13 100 2 Chronological Log Time Study Chronological Log 7:00:00 Patient arrived via Bed. 7:00:06 Patient Name, D.O.B, / Armband Verified By R.N. 7:00:08 Pre-op and post- op instructions given; patient acknowledges understanding of instructions . 7:00:10 Consent signed by the physician and the patient and verified by the [facility] staff. 7:00:33 Disposable Defibrillator Pads Placed On Patient. 7:00:41 Verbal Stimulation=2 Physical Stimulation=2 Airway=2 Respiration=2 TOTAL=8. (0=absent, 1=l imited, 2=present) 7:01:00 Patient has been NPO for More than 6Hrs. 7:01:03 Right IJ sheath with temporary pacemaker in place 7:01:25 Skin Breakdown- none per patient 7:01:29 Patient Warmer Placed on the Table. 7:02:00 Megan Prominences Protected 7:02:49 A # 20 IV was noted in the Hand (right). Grade = 0 7:02:50 History and physical on the chart or being dictated. 7:08:26 Anesthesia at bedside. Assumes care of patient. IV Solutions given in lab by Anesthesia, AERIAL LINEMAN in Right Hand via Peripheral IV. Pump/Drip Flow using NaCl .9. Ordered 7:18:34 by Edwin Mason. 7:18:44 Table restraints applied according to hospital policy Assessment: Initial Case, HR=75 BPM, Rhythm=paced, MRJH=227/67 mmhg, Chest Pain=0, Edema=None, Color=Normal, Skin = Warm, Dry 7:20:36 Neurological: State=Alert, Ox3, EVANGELISTA Respiration: Resp=13 B/min, NnI3=706 %, O2=2 lpm 7:20:54 Disposable Defibrillator Pads Placed On Patient. 7:21:08 Bovie ground pad applied to: 7:21:49 IV dislodged; new IV start in progress 7:22:11 A # 20 IV was noted in the Hand (right). Grade = 0 7:22:35 MD paged 7:23:34 1 g VANCOMYCIN DRIP given in lab by Anesthesia, AERIAL LINEMAN via Peripheral IV. Ordered by Александр Mason. First Sponge And Instrument Count Done by Dain Issa, RT(R). 7:23:53 Hypo's: 4, Sponges: 20, Bovie/scratch: 2 Sutures: 10, Blades: 1, Instruments: 26, Syveck Patches: 0 Bilateral Upper Chest Prepped Times Two with Chlorhexidine solution r/t iodine allergy. Patient draped after a 3 min. 7:26:20 waiting time 7:27:33 MD responded 7:28:03 2% CHLORHEXIDINE GLUCONATE WASH DONE PRIOR TO PROCEDURE. Time Out. Correct patient, procedure, procedure equipment, site and side verified with physician present. Time 7:32:38 concurred by MD, individual staff and AERIAL LINEMAN. 7:32:42 Case Start 7:32:49 10 mL 2% XYLOCAINE given in lab by Edwin Mason in Left chest via Subcutaneous. Ordered by Marlon, Hanscy. 7:35:29 Vascular access was obtained in the Subclav. Vein (Lft. 7:35:51 Vascular access was obtained in the Subclav. Vein (Lft. 7:36:03 Surgical Incision Made. 7:37:08 A pocket was created at the L Upper Chest. 7:39:42 A SAFE SHEATH, FR8, 13CM FR 8 was advanced into the Subclav. Vein (Lft using the Percutaneou s technique. 7:40:01 A SAFE SHEATH, FR8, 13CM FR 8 was advanced into the Subclav. Vein (Lft using the Percutaneou s technique. 7:40:06 A LEAD, TENDRIL STS 2088TC 58CM 58CM was inserted and positioned in the RV. 7:41:19 Reference ECG taken 7:41:25 Lead placement verified under fluoroscopy 7:41:32 The RV lead impedance and threshold being tested. 7:44:26 A LEAD, TENDRIL STS 2088TC 52CM 52CM was inserted and positioned in the RA. 7:47:29 Lead placement verified under fluoroscopy 7:47:32 The Atrial lead impedance and threshold is being tested. 7:48:57 The RV lead was sutured to the fascia. 7:50:51 Pocket flushed with antibiotic solution 7:50:54 A PACEMAKER, FREDRICK KATZ MRI was connected and placed in the pocket. 7:51:08 The pocket is being closed. Second Sponge And Instrument Count Done by Dain Issa, RT(R). 7:52:41 Hypo's: 4, Sponges: 20, Bovie/scratch: 2 Sutures: 10, Blades: 1, Instruments: ~INSTRU~, Syveck Patches: 0 7:52:55 Temporary pacer removed under fluoro 7:53:18 Right IJ introducer removed and pressure held Final Sponge And Instrument Count Done by Dain Issa RT(R). 8:04:37 Hypo's: 4, Sponges: 20, Bovie/scratch: 2 Sutures: 11, Blades: 1, Instruments: ~INSTRU~, Syveck Patches: 0 8:05:26 Steri-strips and a sterile dressing applied to site. 8:12:59 A PPM Implant . (Dual) 8:13:16 Bedside Report will be given. 8:13:17 The pocket was closed. 8:13:52 Case End 8:14:00 Implant Procedure was performed. 8:14:36 A sling was placed on the affected arm. 8:15:58 No case complications noted. 8:18:08 Cine recording checked. 8:18:19 Implantable Device card placed in patient's chart. 8:18:31 Patient moved to stretcher End Study - Contrast Media Used In Study Contrast Total Opened (mL) Total Used (mL) Total Wasted (mL) Unspecified 0 0 0 End Study - Radiation Exposure Fluoro Time (minutes) 3.4 End Study - Patient Disposition Complications Transferred To No Telemetry Bed
[2017-10-12] MEDS: SODIUM CHLORIDE 0.9% FLUSH 10 ML FLUSH IV FLUSH SCH ×2 (09:00→20:57)
[2017-10-12] MEDS: amLODIPine BESYLATE 5 MG TAB PO SCH (09:00)
--- NOTE | 2017-10-12 09:12 | RADRPT ---
EXAM DATE/TIME: 10/12/2017 08:55 [place] COMPARISON: CHEST SINGLE AP, September 08, 2017, 10:53. INDICATIONS : Evaluaate for pneumothorax post pacemaker MEDICAL HISTORY : Cardiovascular disease. Hypertension. Congestive heart failure SURGICAL HISTORY : Hysterectomy. CABG ENCOUNTER: Subsequent ACUITY: 3 days PAIN SCORE: 0/10 LOCATION: chest FINDINGS: Post surgical features of prior median sternotomy. Interval placement of dual-lead pacemaker with clementine ds projecting over the right atrium and right ventricle. No significant pneumothorax. Diffuse interst itial prominence with patchy bilateral lower lobe air space opacities similar to prior exam. Bilatera l calcified hilar nodes and calcified granuloma. Cardiomediastinal contours are within normal limits. Remainder of the exam is unchanged. CONCLUSION: 1. Dual lead pacemaker with leads projecting over the right atrium and ventricle. No pneumothorax. 2. Remainder of the exam is unchanged. Charles Land MD on October 12, 2017 at 9:07 Board Certified Radiologist. This report was verified electronically.
--- NOTE | 2017-10-12 10:29 | PD.CAR.PN ---
CVT Progress Note Subjective/Hospital Course: 76yF with severe symptomatic aortic stenosis that presents for elective transcatheter aortic valve replacement. she underwent TAVR, complicated by ventricular quiescence when the valve crossed the LVOT, requiring transvenous pacing. surgery 10/11 Transcatheter aortic valve replacement with a 26 Glen 3 tissue valve Balloon aortic valvuloplasty with a 23 x 4 Daniels balloon Percutaneous bilateral femoral artery access with Perclose closure on left Right femoral venous access Aortography Fluoroscopy 10/12 had some aystole last pm, now s/p dual chamber pacer inserted Objective: GENERAL: SKIN: Warm and dry. dressing over left upper chest / pacer insitu both groins with dressing in place , no hematoma HEAD: Normocephalic. EYES: No scleral icterus. No injection or drainage. NECK: Supple, trachea midline. No JVD or lymphadenopathy. CARDIOVASCULAR: Regular rate and rhythm without murmurs, gallops, or rubs. RESPIRATORY: Breath sounds equal bilaterally. No accessory muscle use. GASTROINTESTINAL: Abdomen soft, non-tender, nondistended. MUSCULOSKELETAL: No cyanosis, or edema. BACK: Nontender without obvious deformity. No CVA tenderness. Vital Signs Date Time Temp Pulse Resp B/P (MAP) Pulse Ox O2 Delivery O2 Flow Rate FiO2 10/12/17 09:18 95 21 10/12/17 04:24 91 10/12/17 04:00 86 10/12/17 04:00 98.2 80 16 98 154/56 (88) 10/12/17 04:00 98 Room Air 10/12/17 03:56 97 21 10/11/17 23:30 86 10/11/17 23:10 98 Room Air 10/11/17 23:10 98.4 86 16 101/45 (63) 98 105/42 (63) 10/11/17 23:10 86 10/11/17 21:25 97 21 10/11/17 19:30 73 10/11/17 19:30 97 Room Air 10/11/17 19:30 97.6 75 16 141/67 (91) 97 146/55 (85) 10/11/17 19:00 67 10/11/17 15:00 73 10/11/17 15:00 97 Nasal Cannula 3.00 10/11/17 15:00 97.6 73 16 124/69 (87) 99 134/60 (84) 10/11/17 15:00 73 10/11/17 11:20 99 Nasal Cannula 4.00 10/11/17 11:00 70 10/11/17 11:00 99 Nasal Cannula 4.00 10/11/17 11:00 97.7 70 16 120/66 (84) 99 135/47 (76) 10/11/17 11:00 70 Labs: Laboratory Tests Test 10/12/17 03:26 White Blood Count 10.4 TH/MM3 (4.0-11.0) Red Blood Count 3.80 MIL/MM3 (4.00-5.30) Hemoglobin 10.5 GM/DL (11.6-15.3) Hematocrit 31.5 % (35.0-46.0) Mean Corpuscular Volume 82.9 FL (80.0-100.0) Mean Corpuscular Hemoglobin 27.5 PG (27.0-34.0) Mean Corpuscular Hemoglobin Concent 33.2 % (32.0-36.0) Red Cell Distribution Width 15.2 % (11.6-17.2) Platelet Count 191 TH/MM3 (150-450) Mean Platelet Volume 9.5 FL (7.0-11.0) Blood Urea Nitrogen 17 MG/DL (7-18) Creatinine 0.80 MG/DL (0.50-1.00) Random Glucose 95 MG/DL (74-106) Calcium Level 8.3 MG/DL (8.5-10.1) Sodium Level 144 MEQ/L (136-145) Potassium Level 3.7 MEQ/L (3.5-5.1) Chloride Level 113 MEQ/L (98-107) Carbon Dioxide Level 22.9 MEQ/L (21.0-32.0) Anion Gap 8 MEQ/L (5-15) Estimat Glomerular Filtration Rate 70 ML/MIN (>89) Result Diagram: 10/12/17 0326 10/12/17 0326 Telemetry: NSR (1) S/P TAVR (transcatheter aortic valve replacement) Plan: dressing intact doing well all further orders and notes as per cardiology , will see prn (2) S/P biventricular cardiac pacemaker procedure (3) Heart block (4) Aortic stenosis (5) Diastolic heart failure Laura Crow Oct 12, 2017 10:29
[2017-10-12] MEDS ORDERED: FUROSEMIDE 20 MG TAB PO ONE (10:45)
[2017-10-12] MEDS: CLOPIDOGREL 75 MG TAB PO SCH (11:01)
[2017-10-12] MEDS: PANTOPRAZOLE SOD 20 MG DELAYED RELEASE TAB PO SCH (11:01)
[2017-10-12] MEDS: BUDESONIDE-FORMOTEROL 160/4.5 MCG INHALER INH SCH ×2 (11:02→20:55)
[2017-10-12] MEDS ORDERED: PROPOFOL 200 MG/20 ML AMP IV ONE (12:00)
--- NOTE | 2017-10-12 15:17 | ECHRPT ---
Indication: EF assessment of CHF CONCLUSIONS The left ventricular systolic function is low normal with an estimated ejection fraction in the rang e of 50- 55%. Wall thickness is normal. Normal left ventricular size. The aortic valve is not well visualized. normally functioning bioprosthetic aortic valve. Aortic valve mean gradient is 8.7 mmHg. No paravalvular leak. BP: 154 / 56 HR: 80 Rhythm: Sinus MEASUREMENTS (Male / Female) Normal Values Technical Quality:Fair 2D ECHO LV Diastolic Diameter PLAX 3.5 cm 4.2 - 5.9 / 3.9 - 5.3 cm LV Systolic Diameter PLAX 2.5 cm IVS Diastolic Thickness 0.9 cm 0.6 - 1.0 / 0.6 - 0.9 cm LVPW Diastolic Thickness 0.9 cm 0.6 - 1.0 / 0.6 - 0.9 cm LV Relative Wall Thickness 0.5 LVOT Diameter 2.0 cm DOPPLER AV Peak Velocity 197.6 cm/s AV Peak Gradient 15.6 mmHg AV Mean Gradient 8.7 mmHg AV Velocity Time Integral 32.7 cm LVOT Peak Velocity 100.0 cm/s LVOT Peak Gradient 4.0 mmHg AV Area Cont Eq pk 1.6 cm FINDINGS LEFT VENTRICLE The left ventricular systolic function is low normal with an estimated ejection fraction in the rang e of 50- 55%. Wall thickness is normal. Normal left ventricular size. RIGHT VENTRICLE Normal right ventricular size and systolic function. LEFT ATRIUM The left atrial size is normal. RIGHT ATRIUM The right atrial size is normal. ATRIAL SEPTUM Normal atrial septal thickness without atrial level shunting by limited color doppler interrogation. AORTA The aortic root and proximal ascending aorta are normal in size on limited imaging. MITRAL VALVE Structurally normal mitral valve. No mitral valve stenosis or regurgitation. AORTIC VALVE The aortic valve is not well visualized. normally functioning bioprosthetic aortic valve. Aortic valve mean gradient is 8.7 mmHg. No paravalvular leak. TRICUSPID VALVE Structurally normal tricuspid valve. No tricuspid valve stenosis or regurgitation. PULMONARY VALVE The pulmonary valve is not well visualized. VESSELS The inferior vena cava is normal in size. PERICARDIUM No pericardial effusion. Sean Rosen MD, FACC (Electronically Signed) Final Date:12 October 2017 15:15
--- NOTE | 2017-10-12 15:41 | EKG ---
Date Performed: 10/12/2017 Time Performed: 06:04:24 PTAGE: 76 years EKG: Sinus rhythm Left axis deviation RBBB with left anterior fascicular block Inferior and lateral ST elevation - pos sible early repolarization When compared to previous tracing, sinus rhythm has replaced Atrial fibril lation with rapid ventricular response. Abnormal ECG PREVIOUS TRACING : 10/11/2017 07.30 DOCTOR: Dylan Dickerson Interpretating Date/Time 10/12/2017 15:39:55
--- NOTE | 2017-10-12 15:42 | EKG ---
Date Performed: 10/12/2017 Time Performed: 09:03:56 PTAGE: 76 years EKG: Sinus rhythm with 1st degree A-V block Left axis deviation RBBB with left anterior fascicular block Inferior ST e levation suggests early repolarization Since previous tracing, no significant change noted Abnormal E CG PREVIOUS TRACING : 10/12/2017 06.04.24 DOCTOR: Dylan Dickerson Interpretating Date/Time 10/12/2017 15:40:36
[2017-10-12] MEDS ORDERED: oxyCODONE/ACETAMINOPHEN 5 MG/325 MG TAB PO PRN (18:00)
[2017-10-12] MEDS ORDERED: LATANOPROST 0.005% OPHT SOLN 2.5 ML BTL EACH EYE SCH (21:00)
[2017-10-13] VITALS (11 sets, daily range): BP systolic 98–123; BP diastolic 53–60; PULSE 79–85; RESP 16–22; TEMP 98.2–98.6; O2SAT 96–99
[2017-10-13] MEDS: RESP: ALBUTEROL 2.5 MG/IPRATROPIUM 0.5 MG NEB (SCH) INH ×2 (03:54→09:17)
[2017-10-13] MEDS: LEVOTHYROXINE SODIUM 100 MCG TAB PO SCH (05:43)
--- NOTE | 2017-10-13 08:06 | PD.CARD.PN ---
Subjective Subjective Remarks Seen with family at bedside. The patient reports she is doing well. She had pacemaker placed yesterday. She denies any chest pain, shortness breath, palpitations. States that she has been ambulating well here. She wants to go home today. Objective Medications Current Medications Medications (Trade) Dose Ordered Sig/Tammi Route Start Time Stop Time Status Last Admin Vancomycin/Sodium Chloride 200 ml @ 200 mls/hr BARREL BUNG REMOVER AND DUMPER IV 10/11/17 06:15 10/14/17 06:14 10/11/17 08:20 (Duoneb Neb) 1 ampule Q6HR NEB INH 10/11/17 10:00 10/13/17 03:54 (Duoneb Neb) 1 ampule Q2HR NEB PRN NEB 10/11/17 10:00 Potassium Chloride 100 ml @ 50 mls/hr Q2H PRN IV 10/11/17 10:00 Potassium Chloride 100 ml @ 50 mls/hr Q2H PRN IV 10/11/17 10:00 (K-Lyte Cl Eff) 50 meq UNSCH PRN PO 10/11/17 10:00 Potassium Chloride 100 ml @ 25 mls/hr UNSCH PRN IV 10/11/17 10:00 Potassium Chloride 100 ml @ 50 mls/hr Q2H PRN IV 10/11/17 10:00 Magnesium Sulfate 4 gm/Sodium Chloride 100 ml @ 50 mls/hr UNSCH PRN IV 10/11/17 10:00 (Mag-Ox) 800 mg UNSCH PRN PO 10/11/17 10:00 Magnesium Sulfate 2 gm/Sodium Chloride 100 ml @ 50 mls/hr UNSCH PRN IV 10/11/17 10:00 (K-Phos) 2,000 mg Q4H PRN PO 10/11/17 10:00 Sodium Phosphate 30 mmol/Sodium Chloride 250 ml @ 42 mls/hr UNSCH PRN IV 10/11/17 10:00 (K-Phos) 2,000 mg UNSCH PRN PO/TUBE 10/11/17 10:00 Potassium Phosphate 30 mmol/ Sodium Chloride 260 ml @ 42 mls/hr UNSCH PRN IV 10/11/17 10:00 (Norvasc) 5 mg DAILY PO 10/12/17 09:00 10/12/17 09:00 (Symbicort 160-4.5 Mcg Inh) 2 puff Q12HR INH 10/11/17 21:00 10/12/17 20:55 (Synthroid) 100 mcg DAILY@0600 PO 10/12/17 06:00 10/13/17 05:43 (Protonix) 20 mg DAILY PO 10/12/17 09:00 10/12/17 11:01 (Plavix) 75 mg DAILY PO 10/12/17 09:00 10/12/17 11:01 (D50w (Vial) Inj) 50 ml UNSCH PRN IV PUSH 10/11/17 10:30 (Glucagon Inj) 1 mg UNSCH PRN OTHER 10/11/17 10:30 Sodium Chloride 500 ml @ 30 mls/hr [id number] PRN IV 10/12/17 02:15 10/15/17 02:14 (Betadine 5% Antisepsis Kit) 1 applic BARREL BUNG REMOVER AND DUMPER PRN EACH NARE 10/12/17 02:15 10/15/17 02:14 (Chlorhexidine 2% Cloth) 3 pack BARREL BUNG REMOVER AND DUMPER PRN TOPICAL 10/12/17 02:15 10/15/17 02:14 10/12/17 05:47 Lactated Ringer's 1,000 ml @ 30 mls/hr Q24H PRN IV 10/12/17 02:15 10/15/17 02:14 (NS Flush) 2 ml BID IV FLUSH 10/12/17 09:00 10/12/17 20:57 (NS Flush) 2 ml UNSCH PRN IV FLUSH 10/12/17 08:00 (Xalatan 0.005% Opth Soln) 1 drop HS EACH EYE 10/12/17 21:00 10/12/17 20:54 (Percocet 5-325 Mg) 1 tab Q4H PRN PO 10/12/17 18:00 10/12/17 18:07 Vital Signs / I&O Vital Signs Date Time Temp Pulse Resp B/P (MAP) Pulse Ox O2 Delivery O2 Flow Rate FiO2 10/13/17 06:00 80 10/13/17 03:54 99 21 10/13/17 03:00 98.6 82 22 98/53 (68) 96 10/13/17 03:00 82 10/13/17 03:00 96 Room Air 10/12/17 23:00 80 10/12/17 23:00 98.4 80 18 114/57 (76) 97 10/12/17 23:00 97 Room Air 10/12/17 19:56 96 21 10/12/17 19:10 18 10/12/17 19:00 98.3 80 18 110/53 (72) 96 10/12/17 19:00 80 10/12/17 19:00 96 Room Air 10/12/17 18:00 82 10/12/17 17:00 80 10/12/17 16:00 95 10/12/17 15:32 98 Room Air 10/12/17 15:32 98.4 100 16 142/65 (90) 98 Arterial Line 10/12/17 15:00 103 10/12/17 14:00 91 10/12/17 13:00 97 10/12/17 11:00 98 10/12/17 11:00 98 Room Air 10/12/17 11:00 97.9 98 16 124/70 (88) 96 143/61 (88) 10/12/17 09:18 95 21 10/12/17 08:42 83 10/12/17 08:42 98 Room Air 10/12/17 08:42 98.0 83 16 143/65 (91) 98 162/63 (96) 10/12/17 08:42 98.0 83 16 143/65 (91) 98 162/63 (96) I/O 10/12/17 10/12/17 10/12/17 10/13/17 10/13/17 10/13/17 07:00 15:00 23:00 07:00 15:00 23:00 Intake Total 240 ml 860 ml 240 ml Output Total 675 ml Balance -435 ml 860 ml 240 ml Intake Oral 240 ml 860 ml 240 ml Output Urine Total 675 ml # Voids 4 3 # Bowel Movements 0 Physical Exam GENERAL: Well-developed well-nourished. In no acute distress. NECK: No carotid bruits. No JVD. CARDIOVASCULAR: Regular rate and rhythm. 1/6 systolic murmur appreciated. Pacemaker in place with clean dressing on left chest wall. RESPIRATORY: No accessory muscle use. Clear to auscultation. Breath sounds equal bilaterally. MUSCULOSKELETAL: No clubbing or cyanosis. No edema. NEUROLOGICAL: Awake and alert. Normal speech. Imaging Last Impressions Chest X-Ray 10/12/17 0000 Signed Impressions: Service Date/Time: September 08:55 - CONCLUSION: 1. Dual lead pacemaker with leads projecting over the right atrium and ventricle. No pneumothorax. 2. Remainder of the exam is unchanged. Charles Land MD Assessment and Plan Problem List: (1) S/P TAVR (transcatheter aortic valve replacement) ICD Codes: Z95.2 - Presence of prosthetic heart valve (2) S/P biventricular cardiac pacemaker procedure ICD Codes: Z95.0 - Presence of cardiac pacemaker (3) Heart block ICD Codes: I45.9 - Conduction disorder, unspecified (4) Aortic stenosis ICD Codes: I35.0 - Nonrheumatic aortic (valve) stenosis (5) Diastolic heart failure ICD Codes: I50.30 - Unspecified diastolic (congestive) heart failure Assessment and Plan 76-year-old female with past medical history of atrial fibrillation, CAD, HLD, HTN, CKD, GERD, hypothyroidism and severe aortic stenosis who underwent TAVR s/p TAVR 10/11: Doing well today. Required pacemaker placement with Dr. Mason for heart block. Started on Plavix. Joe Espino Oct 13, 2017 08:06
[2017-10-13] MEDS ORDERED: PLAV75TA29 PO (08:07)
[2017-10-13] MEDS: BUDESONIDE-FORMOTEROL 160/4.5 MCG INHALER INH SCH (08:50)
[2017-10-13] MEDS: CLOPIDOGREL 75 MG TAB PO SCH (08:50)
[2017-10-13] MEDS: PANTOPRAZOLE SOD 20 MG DELAYED RELEASE TAB PO SCH (08:50)
[2017-10-13] MEDS: amLODIPine BESYLATE 5 MG TAB PO SCH (08:50)
[2017-10-13] MEDS: SODIUM CHLORIDE 0.9% FLUSH 10 ML FLUSH IV FLUSH SCH (08:51)
[2017-10-13] MEDS ORDERED: LISI-519 PO (10:21)
--- NOTE | 2017-10-13 10:24 | PD.CARD.PN ---
Subjective Subjective Remarks Feels ok Objective Medications Current Medications Medications (Trade) Dose Ordered Sig/Tammi Route Start Time Stop Time Status Last Admin Vancomycin/Sodium Chloride 200 ml @ 200 mls/hr DICE MANAGER IV 10/11/17 06:15 10/14/17 06:14 10/11/17 08:20 (Duoneb Neb) 1 ampule Q6HR NEB INH 10/11/17 10:00 10/13/17 09:17 (Duoneb Neb) 1 ampule Q2HR NEB PRN NEB 10/11/17 10:00 Potassium Chloride 100 ml @ 50 mls/hr Q2H PRN IV 10/11/17 10:00 Potassium Chloride 100 ml @ 50 mls/hr Q2H PRN IV 10/11/17 10:00 (K-Lyte Cl Eff) 50 meq UNSCH PRN PO 10/11/17 10:00 Potassium Chloride 100 ml @ 25 mls/hr UNSCH PRN IV 10/11/17 10:00 Potassium Chloride 100 ml @ 50 mls/hr Q2H PRN IV 10/11/17 10:00 Magnesium Sulfate 4 gm/Sodium Chloride 100 ml @ 50 mls/hr UNSCH PRN IV 10/11/17 10:00 (Mag-Ox) 800 mg UNSCH PRN PO 10/11/17 10:00 Magnesium Sulfate 2 gm/Sodium Chloride 100 ml @ 50 mls/hr UNSCH PRN IV 10/11/17 10:00 (K-Phos) 2,000 mg Q4H PRN PO 10/11/17 10:00 Sodium Phosphate 30 mmol/Sodium Chloride 250 ml @ 42 mls/hr UNSCH PRN IV 10/11/17 10:00 (K-Phos) 2,000 mg UNSCH PRN PO/TUBE 10/11/17 10:00 Potassium Phosphate 30 mmol/ Sodium Chloride 260 ml @ 42 mls/hr UNSCH PRN IV 10/11/17 10:00 (Norvasc) 5 mg DAILY PO 10/12/17 09:00 10/13/17 08:50 (Symbicort 160-4.5 Mcg Inh) 2 puff Q12HR INH 10/11/17 21:00 10/13/17 08:50 (Synthroid) 100 mcg DAILY@0600 PO 10/12/17 06:00 10/13/17 05:43 (Protonix) 20 mg DAILY PO 10/12/17 09:00 10/13/17 08:50 (Plavix) 75 mg DAILY PO 10/12/17 09:00 10/13/17 08:50 (D50w (Vial) Inj) 50 ml UNSCH PRN IV PUSH 10/11/17 10:30 (Glucagon Inj) 1 mg UNSCH PRN OTHER 10/11/17 10:30 Sodium Chloride 500 ml @ 30 mls/hr [id number] PRN IV 10/12/17 02:15 10/15/17 02:14 (Betadine 5% Antisepsis Kit) 1 applic DICE MANAGER PRN EACH NARE 10/12/17 02:15 10/15/17 02:14 (Chlorhexidine 2% Cloth) 3 pack DICE MANAGER PRN TOPICAL 10/12/17 02:15 10/15/17 02:14 10/12/17 05:47 Lactated Ringer's 1,000 ml @ 30 mls/hr Q24H PRN IV 10/12/17 02:15 10/15/17 02:14 (NS Flush) 2 ml BID IV FLUSH 10/12/17 09:00 10/13/17 08:51 (NS Flush) 2 ml UNSCH PRN IV FLUSH 10/12/17 08:00 (Xalatan 0.005% Opth Soln) 1 drop HS EACH EYE 10/12/17 21:00 10/12/17 20:54 (Percocet 5-325 Mg) 1 tab Q4H PRN PO 10/12/17 18:00 10/12/17 18:07 Vital Signs / I&O Vital Signs Date Time Temp Pulse Resp B/P (MAP) Pulse Ox O2 Delivery O2 Flow Rate FiO2 10/13/17 09:21 98 21 10/13/17 09:00 85 10/13/17 08:00 80 10/13/17 07:23 98 Room Air 10/13/17 07:23 98.3 80 16 103/59 (74) 97 10/13/17 07:00 79 10/13/17 06:00 80 10/13/17 03:54 99 21 10/13/17 03:00 98.6 82 22 98/53 (68) 96 10/13/17 03:00 82 10/13/17 03:00 96 Room Air 10/12/17 23:00 80 10/12/17 23:00 98.4 80 18 114/57 (76) 97 10/12/17 23:00 97 Room Air 10/12/17 19:56 96 21 10/12/17 19:10 18 10/12/17 19:00 98.3 80 18 110/53 (72) 96 10/12/17 19:00 80 10/12/17 19:00 96 Room Air 10/12/17 18:00 82 10/12/17 17:00 80 10/12/17 16:00 95 10/12/17 15:32 98 Room Air 10/12/17 15:32 98.4 100 16 142/65 (90) 98 Arterial Line 10/12/17 15:00 103 10/12/17 14:00 91 10/12/17 13:00 97 10/12/17 11:00 98 10/12/17 11:00 98 Room Air 10/12/17 11:00 97.9 98 16 124/70 (88) 96 143/61 (88) I/O 10/12/17 10/12/17 10/12/17 10/13/17 10/13/17 10/13/17 07:00 15:00 23:00 07:00 15:00 23:00 Intake Total 240 ml 860 ml 240 ml Output Total 675 ml Balance -435 ml 860 ml 240 ml Intake Oral 240 ml 860 ml 240 ml Output Urine Total 675 ml # Voids 4 3 # Bowel Movements 0 Physical Exam GENERAL: Well-nourished, well-developed patient. SKIN: Warm and dry. LCW incision well approximated without erythema or drainage. HEAD: Normocephalic. EYES: No scleral icterus. No injection or drainage. NECK: Supple, trachea midline. No JVD or lymphadenopathy. CARDIOVASCULAR: Regular rate and rhythm without murmurs, gallops, or rubs. RESPIRATORY: Breath sounds equal bilaterally. No accessory muscle use. GASTROINTESTINAL: Abdomen soft, non-tender, nondistended. EXTREMITIES: No cyanosis, or edema. NEUROLOGICAL: Awake, alert, and oriented x 3. Non-focal. Imaging Last Impressions Chest X-Ray 10/12/17 0000 Signed Impressions: Service Date/Time: September 08:55 - CONCLUSION: 1. Dual lead pacemaker with leads projecting over the right atrium and ventricle. No pneumothorax. 2. Remainder of the exam is unchanged. Charles Land MD Assessment and Plan Problem List: (1) S/P biventricular cardiac pacemaker procedure ICD Codes: Z95.0 - Presence of cardiac pacemaker Plan: Stable s/p PPM implant. Can be discharged at the discretion of the managing team per my d/w Dr. Mason. F/U with him in 2 weeks. Vivi Horton Oct 13, 2017 10:24
--- NOTE | 2017-10-13 11:21 | HHI.DS ---
Discharge Summary Admission Date Oct 11, 2017 at 05:55 Discharge Date: Oct 13, 2017 Admitting Diagnosis severe aortic stenosis Procedures transcatheter aortic valve replacement permanent pacemaker placement CBC/BMP: 10/12/17 0326 10/12/17 0326 Significant Findings Laboratory Tests Test 10/12/17 03:26 Red Blood Count 3.80 MIL/MM3 (4.00-5.30) Hemoglobin 10.5 GM/DL (11.6-15.3) Hematocrit 31.5 % (35.0-46.0) Calcium Level 8.3 MG/DL (8.5-10.1) Chloride Level 113 MEQ/L (98-107) Estimat Glomerular Filtration Rate 70 ML/MIN (>89) PE at Discharge GENERAL: SKIN: Warm and dry. HEAD: Normocephalic. EYES: No scleral icterus. No injection or drainage. NECK: Supple, trachea midline. No JVD or lymphadenopathy. CARDIOVASCULAR: Regular rate and rhythm without murmurs, gallops, or rubs. RESPIRATORY: Breath sounds equal bilaterally. No accessory muscle use. GASTROINTESTINAL: Abdomen soft, non-tender, nondistended. MUSCULOSKELETAL: No cyanosis, or edema. BACK: Nontender without obvious deformity. No CVA tenderness. Hospital Course Underwent transcatheter aortic valve replacement post procedure, she had bradycardia requiring pacemaker placement otherwise, uncomplicated hospital course dc today Pt Condition on Discharge: Good Discharge Disposition: Discharge Home Discharge Instructions DIET: Follow Instructions for: Heart Healthy Diet Sean Rosen MD Oct 13, 2017 11:21
[2017-10-13] MEDS ORDERED: LEVOFLOXACIN 500 MG TAB PO SCH (12:00)
--- NOTE | 2017-10-14 09:03 | EKG ---
Date Performed: 10/13/2017 Time Performed: 04:45:06 PTAGE: 76 years EKG: Electronic pacemaker Abnormal ECG NO PREVIOUS TRACING DOCTOR: Edwin Mason Interpretating Date/Time 10/14/2017 09:00:39
--- NOTE | 2017-10-15 22:56 | PD.CARD ---
DUAL PPM IMPLANTATION PROCEDURE DATE: Oct 12, 2017 DUAL PPM IMPLANTATION PROCEDURE: Dual chamber permanent pacemaker implantation. INDICATIONS FOR PROCEDURE: Ms. Nieto is a 76 -year-old female with complete AV block, SP TAVR, on no negative chronotropic medications who undergo pacer insertion. The risks, the nature and the benefit of the procedure were clearly stated to her . The risks include pneumothorax, cardiac perforation, stroke and even . She understood and agreed to proceed. PROCEDURE After written informed consent was obtained, the patient was transferred to the EP lab where she was prepped and draped in the usual sterile fashion. Conscious sedation was initiated and maintained throughout the procedure by the anesthesiologist. Once sedation was verified, the left infraclavicular area was with 2% Xylocaine. Using modified Seldinger technique, the left subclavian vein was cannulated on two occasions and two guidewires were advanced. Then, using a #11 blade scalpel, a 2 cm was made two fingerbreadths below the left clavicle. This incision was then taken down through the deep fascial layer using Bovie cautery and blunt dissection. Into the inferomedial direction, device pocket was dissected, then the wire was dissected into the pocket. A 2- 0 Vicryl suture was placed around the wire to prevent backbleeding. At this point, over the lateral wire, an 7-Guamanian dilator and introducer was advanced. As the dilator and wire were removed, an active fixation right ventricular pacing and sensing lead was advanced. After adequate pacing and sensing thresholds were obtained, the lead was secured in the pocket using 2-0 Ethibond suture. Then, over the remaining wire, an 7-Guamanian dilator and introducer was advanced. As the dilator and wire were removed, an active fixation right atrial pacing and sensing lead was advanced. After adequate pacing and sensing thresholds were obtained, the lead was secured into the pocket using 2-0 Ethibond suture. At that point, the pocket was copiously irrigated using antibiotic solution. This was connected to the generator and placed into the pocket. I did proceed with wound closure. The deep fascial layer was approximated using 2-0 Vicryl suture in a continuous fashion. The subcutaneous layer was approximated with 2-0 Vicryl suture in a continuous fashion. The subcuticular layer was approximated with 2-0 Vicryl suture in a continuous fashion. Dermabond adhesive was applied to the wound followed by sterile pressure dressing. There was no complication. The patient tolerated procedure. Blood loss minimal. IMPLANTED HARDWARE The permanent pacemaker is a [employer]. Model # [id number] serial number [id number]. The right atrial pacing and sensing lead is a [employer] model number 2088TC-52, serial number [id number]. The right ventricular pacing and sensing lead is a [employer] model number 2088TC- 58, serial number [id number]. THRESHOLDS The right atrial pacing threshold in the bipolar mode was 1.0 V @ 0.4 milliseconds, lead impedance 510 ohms and P-wave at 3.5 millivolts. The right ventricular pacing threshold in the bipolar mode was 1.0 V @ 0.4 milliseconds, lead impedance 450 ohms and R-wave 10.9 millivolts. SETTINGS The device was set in the DDD 60, upper limit 120 beats per minute. Hysteresis and mode switch are on. CONCLUSIONS: Successful permanent pacemaker implantation, COMMENT AND RECOMMENDATION The patient will be transferred to the telemetry unit. He will be observed. When stable, he can be discharged home. Edwin Mason MD Oct 15, 2017 22:56
== END 2017-10-13 12:00 | disposition home or self-care (01) | DRG 267 ==
LOC: HSDI 05:55 → HDIC 05:56 → HCVI 10:10 → HCPC 10-12 12:20
PROVIDERS: ADMIT Internal Medicine; ATTEND Internal Medicine
PROC: B246ZZ4 Ultrasonography of Right and Left Heart, Transesophageal (ICD-10-PCS; 2017-10-11)
PROC: 02RF38Z Replacement of Aortic Valve with Zooplastic Tissue, Percutaneous Approach (ICD-10-PCS; principal; 2017-10-11 08:00)
PROC: 5A1223Z Performance of Cardiac Pacing, Continuous (ICD-10-PCS; 2017-10-11 08:00)
PROC: 0JH606Z Insertion of Pacemaker, Dual Chamber into Chest Subcutaneous Tissue and Fascia, Open Approach (ICD-10-PCS; 2017-10-12)
PROC: 02H63JZ Insertion of Pacemaker Lead into Right Atrium, Percutaneous Approach (ICD-10-PCS; 2017-10-12)
PROC: 02HK3JZ Insertion of Pacemaker Lead into Right Ventricle, Percutaneous Approach (ICD-10-PCS; 2017-10-12)
PROC: 4B02XSZ Measurement of Cardiac Pacemaker, External Approach (ICD-10-PCS; 2017-10-13)
DX: I35.2 Nonrheumatic aortic (valve) stenosis with insufficiency (principal); I44.2 Atrioventricular block, complete; R00.1 Bradycardia, unspecified; I13.0 Hypertensive heart and chronic kidney disease with heart failure and stage 1 through stage 4 chronic kidney disease, or unspecified chronic kidney disease; I50.30 Unspecified diastolic (congestive) heart failure; J44.9 Chronic obstructive pulmonary disease, unspecified; I48.91 Unspecified atrial fibrillation; E03.9 Hypothyroidism, unspecified; E78.5 Hyperlipidemia, unspecified; I25.10 Atherosclerotic heart disease of native coronary artery without angina pectoris; M19.90 Unspecified osteoarthritis, unspecified site; N18.9 Chronic kidney disease, unspecified; K21.9 Gastro-esophageal reflux disease without esophagitis; Z00.6 Encounter for examination for normal comparison and control in clinical research program; Z95.1 Presence of aortocoronary bypass graft
CPT/HCPCS: 33208; 33210; 33361; 36415; 36430; 71045; 80048; 85002; 85025; 85027; 85610; 86850; 86900; 86901; 86920; 92986; 93005; 93308; 94640; 94664; 94668; C1760; C1769; C1785; C1893; C1898; G0269; J0282; J1644; J2250; J2370; J2710; J2720; J3010; J3370; J7030; J7040; J7050; J7120; P9016; Q9967